=== PATIENT | male | born 1960 | race Caucasian/White ===

== ENCOUNTER 2018-07-29 05:55 | Inpatient (IN) ==
[2018-07-29] MEDS ORDERED: Ondansetron 4 MG/2 ML VIAL IVP ONE ×2 (06:09→14:46)
[2018-07-29] MEDS ORDERED: Isovue-370 500 ML INFUS..BTL IV ONE (06:09)
[2018-07-29] MEDS ORDERED: *HR* FentaNYL (PF) 100 MCG/2 ML VIAL IVP ONE (06:09)
[2018-07-29] MEDS ORDERED: 0.9 % Sodium Chloride 1,000 ML IVC ONE (06:09)
--- NOTE | 2018-07-29 06:23 | Emergency Department Note ---
Disposition Clinical Impression: Abdominal pain Disposition: Still a Patient Referrals: Gilson Man MD [Primary Care Provider] - Forms: ED Satisfaction Letter, Work/School Release General Adult HPI - General Chief complaint: ED Abdominal Pain Stated complaint: Abd pain Time Seen by Provider: 07/29/18 06:08 Source: EMS Limitations: no limitations Nursing Notes Reviewed: Yes Vital Signs Reviewed: Yes - History of Present Illness Pain Scale: 6 - Related Data Home Medications Medication Instructions Recorded Confirmed Motrin 12/16/17 Tylenol 12/16/17 Previous Rx's Medication Instructions Recorded Cyclobenzaprine [Flexeril] 10 mg PO HS #3 tablet 12/16/17 Diclofenac Potassium 50 mg PO TID PRN #20 tablet 12/16/17 predniSONE [PredniSONE] 20 mg PO BID #10 tablet 12/16/17 Allergies Allergy/AdvReac Type Severity Reaction Status Date / Time No Known Allergies Allergy Verified 12/16/17 14:08 Past Medical History - Past Medical History Medical history: Reports: other Psychiatric history: Reports: no psych history - Social History Smoking Status: Never smoker Smokeless Tobacco Status: No Alcohol use: Reports: none Drug use: Reports: none Physical Exam - General Limitations: no limitations General appearance: alert, in no apparent distress Course Vital Signs Temperature 100.1 F H 07/29/18 05:58 Pulse Rate 95 07/29/18 05:58 Respiratory Rate 20 07/29/18 05:58 Blood Pressure 140/84 07/29/18 05:58 O2 Sat by Pulse Oximetry 93 07/29/18 05:58 Temperature 100.1 F H 07/29/18 05:58 Pulse Rate 95 07/29/18 05:58 Respiratory Rate 20 07/29/18 05:58 Blood Pressure 140/84 07/29/18 05:58 O2 Sat by Pulse Oximetry 93 07/29/18 05:58 Oxygen Delivery Oxygen Delivery Room Air Attestation Statement - Attestation Attestation: This documentation is done with the assistance of Rebecca dictation. Despite efforts made to ensure accuracy, there may be inaccuracies in estimator project manager or spelling and typographical errors. I have personally performed a face to face evaluation on this patient. I have reviewed and agree with the care plan. History and Exam by me shows: Patient seen on arrival with EMS and Magui Kahn, patient denies having abdominal pain feels like he has been constipated with no urine output. He has been doing some exercises with his abdomen. He is not sure if that has a problem with this or not. Nonsurgical abdomen here. Were negative labs and imaging of his abdomen then reassess. He is in agreement with plan. We will sign this chart out to the day shift ER physician Dr. Masterson for further management disposition.
--- NOTE | 2018-07-29 06:24 | Emergency Department Note ---
Disposition Clinical Impression: Intra-abdominal abscess, Pelvic abscess in male, Diverticulitis UTI (urinary tract infection) Qualifiers: Urinary tract infection type: site unspecified Hematuria presence: with hematuria Qualified Code(s): N39.0 - Urinary tract infection, site not specified; R31.9 - Hematuria, unspecified Disposition: Admitted As Inpatient Condition: Fair Referrals: Gilson Man MD [Primary Care Provider] - Forms: ED Satisfaction Letter, Work/School Release Abdominal Pain HPI - General Chief Complaint: ED Abdominal Pain Stated Complaint: Abd pain Time Seen by Provider: 07/29/18 06:08 Source: patient, EMS Mode of arrival: EMS Limitations: no limitations Nursing Notes Reviewed: Yes Vital Signs Reviewed: Yes - History of Present Illness HPI Narrative: 57-year-old male presents from home by squad for evaluation of abdominal pain. He states that on Friday he was using an "AB roller" exercise device and had a sudden onset of severe abdominal pain. The pain was intermittent for about a day and has been constant since Friday night. He had a decreased appetite as well as anorexia. He also describes decreased urine output, but denies dysuria or hematuria. He denies chest pain, shortness of breath, nausea, vomiting, dizziness, vertigo or syncope. He has not taken anything for his symptoms. He states that his last bowel movement was on Friday before working out. He denies previous history of constipation and feels that he is not constipated, but rather has not eaten much over the past few days. Pt Subjective Complaint: abdominal pain Onset (ago): day(s) Consistency: constant, Worsening Location: periumbilical, suprapubic Pain Scale: 6 Quality: cramping, aching, fullness Radiation: other ("All over") Improves with: nothing Worsens with: nothing Context: other (Unknown) Associated symptoms: Reports: fever, chills, constipation, anorexia, other (Decreased urine output). Denies: nausea, vomiting, diarrhea, dysuria, hematemesis, hematochezia, melena, hematuria, syncope Treatments prior to arrival: none - Related Data Home Medications Medication Instructions Recorded Confirmed Gabapentin [Neurontin] 600 mg PO TID 07/29/18 07/29/18 Tramadol HCl [Ultram] 50 mg PO QID PRN 07/29/18 07/29/18 Allergies Allergy/AdvReac Type Severity Reaction Status Date / Time No Known Allergies Allergy Verified 12/16/17 14:08 All systems ED: reviewed and negative except as stated. Review of Systems: As Per HPI Constitutional: Reports: fever, chills. Denies: weakness, weight change, night sweats Eyes: Denies: eye pain, eye discharge, vision change ENT ED: Denies: ear pain, throat pain, congestion, dysphagia Cardiovascular: Denies: chest pain, palpitations, dyspnea on exertion, orthopnea, edema, syncope Respiratory: Denies: cough, dyspnea, wheezes Gastrointestinal: Reports: abdominal pain. Denies: nausea, vomiting, diarrhea, constipation Genitourinary: Denies: urgency, dysuria, frequency, hematuria, discharge, te sticular pain Musculoskeletal: Denies: back pain, neck pain Integumentary: Denies: rash Neurological: Denies: headache, weakness, vertigo Endocrine: Denies: fatigue Hematological/Lymphatic: Denies: easy bleeding, easy bruising, lymphadenopathy Abdominal Pain PMH - Past Medical History Medical history: Reports: other Male Surgical History: Reports: no surgical history Psychiatric history: Reports: no psych history - Social History Smoking status: Never smoker Alcohol use: Reports: none Drug use: Reports: none Physical Exam - General Limitations: no limitations General appearance: alert, in no apparent distress - Head Head exam: atraumatic, normocephalic, normal inspection - Eye Eye exam: Present: normal appearance. Absent: scleral icterus, conjunctival injection, periorbital swelling - ENT ENT exam: mucous membranes dry - Neck Neck exam: Present: normal inspection, full ROM, trachea midline. Absent: tenderness, meningismus - Chest Chest inspection: Present: normal inspection - Respiratory Respiratory exam: Present: normal lung sounds bilaterally. Absent: respiratory distress, wheezes, stridor, accessory muscle use, prolonged expiratory phase - Cardiovascular Cardiovascular exam: Present: regular rate, normal rhythm, normal heart sounds - Abdominal Exam Abdominal exam: Present: soft, tenderness, guarding, diminished bowel sounds. Absent: distention, rebound, rigidity, trauma, ascites, mass, pulsatile mass Abdominal tenderness: Present: RUQ, suprapubic, moderate - Extremities Exam Extremities exam: Present: normal inspection. Absent: pedal edema - Neurological Exam Neurological exam: Present: alert, oriented X3, CN II-XII intact, normal gait - Psychiatric Psychiatric exam: Present: normal affect, normal mood - Skin Skin exam: Present: warm, dry, intact, normal color Course Course Narrative: Patient to ED by squad for evaluation of abdominal pain. He is tender in the suprapubic area and right upper quadrant. He has guarding in the suprapubic area. He denies dysuria or hematuria but has had decreased urine output. No history of prostatitis, kidney stones or kidney infections. No groin pain or lesions. No new partners. Last bowel movement was Friday. However, he has had anorexia since Friday night. He has a low-grade fever and his oxygen saturation is a little low. He denies history of COPD, CHF, PE, asthma, recent respiratory infection, dyspnea, cough, hemoptysis, chest pain or feeling short of breath. His lung sounds are clear. Heart sounds are normal with no murmur. He has no peripheral edema. Sats are mildly improved when he is sitting semi- reclined. He describes the onset of pain while using a type of exercise equipment, however, I think this is actually unrelated as he is describing urinary symptoms, he is tender over the bladder and he has a fever. Bedside ultrasound scan of the bladder shows little to no urine. Labs, meds and CT ordered. Case was discussed with Dr. Bradley. He has had [id number] time with patient and agrees with the assessment and plan. Patient's labs show mild dehydration, leukocytosis with a prevalence of neutrophils. Chest x-ray shows right lower lobe atelectasis. No infiltrate per radiology. CT shows multiple intra-abdominal and intrapelvic abscesses, most likely from ruptured diverticuli. Surgery has been paged. - Consultations Consultation #1: Case discussed with Dr. Maharaj. He will admit the patient to his service. He requests Zosyn and Flagyl instead of Cipro and Flagyl. Blood cultures and abx ordered. Patient's vitals stable. Pain is improved. Time: 08:55 Vital Signs Temperature 100.1 F H 07/29/18 05:58 Pulse Rate 95 07/29/18 05:58 Respiratory Rate 20 07/29/18 05:58 Blood Pressure 140/84 07/29/18 05:58 O2 Sat by Pulse Oximetry 93 07/29/18 05:58 Temperature 100.1 F H 07/29/18 05:58 Pulse Rate 78 10/31/18 07:17 Respiratory Rate 16 07/29/18 07:17 Blood Pressure 106/71 07/29/18 07:17 O2 Sat by Pulse Oximetry 93 07/29/18 07:17 Oxygen Delivery Oxygen Delivery Room Air Abdominal Pain - Medical Records Medical records reviewed: Yes I reviewed the patient's medical records. - Lab Data Lab results reviewed: Yes I reviewed the patient's lab results. Lab results narrative: Laboratory Last Values WBC 15.3 K/mcL (4.3-11.1) H 07/29/18 06:05 RBC 4.91 M/mcL (4.19-5.50) 07/29/18 06:05 Hgb 14.9 g/dL (12.9-16.9) 07/29/18 06:05 Hct 42.9 % (37.5-50.1) 07/29/18 06:05 MCV 87.4 fL (83.0-100.0) 07/29/18 06:05 MCH 30.3 pg (28.0-33.3) 07/29/18 06:05 MCHC 34.7 g/dL (31.6-35.5) 07/29/18 06:05 RDW 12.2 % (11.5-14.5) 07/29/18 06:05 Plt Count 237 K/mcL (140-400) 07/29/18 06:05 MPV 9.6 fL (9.4-12.4) 07/29/18 06:05 Immature Gran % 1.2 % (0-4) 07/29/18 06:05 Seg Neutrophils % 83.5 % 07/29/18 06:05 Lymphocytes % 9.2 % 07/29/18 06:05 Monocytes % 5.3 % 07/29/18 06:05 Eosinophils % 0.5 % 07/29/18 06:05 Basophils % 0.3 % 07/29/18 06:05 Neutrophils # 12.8 K/mcL (1.6-8.9) H 07/29/18 06:05 Lymphocytes # 1.4 K/mcL (0.6-4.6) 07/29/18 06:05 Monocytes # 0.8 K/mcL (0.0-1.3) 07/29/18 06:05 Eosinophils # 0.1 K/mcL (0.0-0.6) 07/29/18 06:05 Basophils # 0.1 K/mcL (0.0-0.2) 07/29/18 06:05 PT 12.7 Seconds (9.4-12.1) H 07/29/18 06:05 INR 1.1 07/29/18 06:05 APTT 28.7 Seconds (26.0-36.0) 07/29/18 06:05 Sodium 130 mEq/L (136-145) L 07/29/18 06:05 Potassium 3.6 mEq/L (3.5-5.1) 07/29/18 06:05 Chloride 96 mEq/L (98-107) L 07/29/18 06:05 Carbon Dioxide 27 mEq/L (23-29) 07/29/18 06:05 BUN 17 mg/dL (6-20) 07/29/18 06:05 Creatinine 0.88 mg/dL (0.70-1.30) 07/29/18 06:05 Est GFR ( Amer) > 60 (> 60) 07/29/18 06:05 Est GFR (Non-Af Amer) > 60 (> 60) 07/29/18 06:05 BUN/Creatinine Ratio 19 (6-26) 07/29/18 06:05 Glucose 129 mg/dL (70-105) H 07/29/18 06:05 Calculated Osmolality 273 (280-300) L 07/29/18 06:05 Lactic Acid 0.5 mmol/L (0.5-2.2) 07/29/18 07:20 Calcium 9.0 mg/dL (8.6-10.3) 07/29/18 06:05 Total Bilirubin 1.4 mg/dL (0.3-1.0) H 07/29/18 06:05 Direct Bilirubin 0.5 mg/dL (0.0-0.2) H 07/29/18 06:05 Indirect Bilirubin 0.9 mg/dL (0.0-1.2) 07/29/18 06:05 AST 24 Units/L (13-39) 07/29/18 06:05 ALT 26 Units/L (7-52) 07/29/18 06:05 Alkaline Phosphatase 58 Units/L (34-104) 07/29/18 06:05 Serum Total Protein 6.9 g/dL (6.4-8.9) 07/29/18 06:05 Albumin 3.6 g/dL (3.5-5.7) 07/29/18 06:05 Globulin 3.3 g/dL (2.4-3.5) 07/29/18 06:05 Albumin/Globulin Ratio 1.1 (1.1-2.2) 07/29/18 06:05 Lipase 23 Units/L (11-82) 07/29/18 06:05 Urine Color Dark Yellow (Yellow) 07/29/18 07:15 Urine Clarity Cloudy (Clear) A 07/29/18 07:15 Urine pH 6.0 pH Units (5.0-8.0) 07/29/18 07:15 Ur Specific [place] 1.021 (1.010-1.025) 07/29/18 07:15 Urine Protein 100 mg/dL (Neg-Trace) H 07/29/18 07:15 Urine Glucose (UA) Normal mg/dL (Normal) 07/29/18 07:15 Urine Ketones Negative mg/dL (Negative) 07/29/18 07:15 Urine Blood Large (Negative) H 07/29/18 07:15 Urine Nitrite Negative (Negative) 07/29/18 07:15 Urine Bilirubin Small (Negative) H 07/29/18 07:15 Urine Urobilinogen 4.0 mg/dL (Normal) H 07/29/18 07:15 Ur Leukocyte Esterase Small (Negative) H 07/29/18 07:15 Urine Microscopic RBC 50-100 per hpf (0-3) H 07/29/18 07:15 Urine Microscopic WBC 5-15 per hpf (0-3) H 07/29/18 07:15 Ur Squamous Epith Cells Few per lpf (None-Few) 07/29/18 07:15 Urine Bacteria Moderate per hpf (None-Few) H 07/29/18 07:15 Hyaline Casts None Seen per lpf (None-Few) 07/29/18 07:15 Ur Culture Indicated? YES (NO) A 07/29/18 07:15 Result diagrams: 07/29/18 06:05 07/29/18 06:05 Lab Results 07/29/18 07/29/18 07/29/18 Range/Units 06:05 06:05 06:05 WBC 15.3 H (4.3-11.1) K/mcL RBC 4.91 (4.19-5.50) M/mcL Hgb 14.9 (12.9-16.9) g/dL Hct 42.9 (37.5-50.1) % MCV 87.4 (83.0-100.0) fL MCH 30.3 (28.0-33.3) pg MCHC 34.7 (31.6-35.5) g/dL RDW 12.2 (11.5-14.5) % Plt Count 237 (140-400) K/mcL MPV 9.6 (9.4-12.4) fL Immature Gran % 1.2 (0-4) % Seg Neutrophils % 83.5 % Lymphocytes % 9.2 % Monocytes % 5.3 % Eosinophils % 0.5 % Basophils % 0.3 % Neutrophils # 12.8 H (1.6-8.9) K/mcL Lymphocytes # 1.4 (0.6-4.6) K/mcL Monocytes # 0.8 (0.0-1.3) K/mcL Eosinophils # 0.1 (0.0-0.6) K/mcL Basophils # 0.1 (0.0-0.2) K/mcL PT 12.7 H (9.4-12.1) Seconds INR 1.1 APTT 28.7 (26.0-36.0) Seconds Sodium 130 L (136-145) mEq/L Potassium 3.6 (3.5-5.1) mEq/L Chloride 96 L (98-107) mEq/L Carbon Dioxide 27 (23-29) mEq/L BUN 17 (6-20) mg/dL Creatinine 0.88 (0.70-1.30) mg/dL Est GFR ( Amer) > 60 (> 60) Est GFR (Non-Af Amer) > 60 (> 60) BUN/Creatinine Ratio 19 (6-26) Glucose 129 H (70-105) mg/dL Calculated Osmolality 273 L (280-300) Calcium 9.0 (8.6-10.3) mg/dL Total Bilirubin 1.4 H (0.3-1.0) mg/dL Direct Bilirubin 0.5 H (0.0-0.2) mg/dL Indirect Bilirubin 0.9 (0.0-1.2) mg/dL AST 24 (13-39) Units/L ALT 26 (7-52) Units/L Alkaline Phosphatase 58 (34-104) Units/L Serum Total Protein 6.9 (6.4-8.9) g/dL Albumin 3.6 (3.5-5.7) g/dL Globulin 3.3 (2.4-3.5) g/dL Albumin/Globulin Ratio 1.1 (1.1-2.2) Lipase 23 (11-82) Units/L Urine Color (Yellow) Urine Clarity (Clear) Urine pH (5.0-8.0) pH Units Ur Specific [place] (1.010-1.025) Urine Protein (Neg-Trace) mg/dL Urine Glucose (UA) (Normal) mg/dL Urine Ketones (Negative) mg/dL Urine Blood (Negative) Urine Nitrite (Negative) Urine Bilirubin (Negative) Urine Urobilinogen (Normal) mg/dL Ur Leukocyte Esterase (Negative) 07/29/18 Range/Units 07:15 WBC (4.3-11.1) K/mcL RBC (4.19-5.50) M/mcL Hgb (12.9-16.9) g/dL Hct (37.5-50.1) % MCV (83.0-100.0) fL MCH (28.0-33.3) pg MCHC (31.6-35.5) g/dL RDW (11.5-14.5) % Plt Count (140-400) K/mcL MPV (9.4-12.4) fL Immature Gran % (0-4) % Seg Neutrophils % % Lymphocytes % % Monocytes % % Eosinophils % % Basophils % % Neutrophils # (1.6-8.9) K/mcL Lymphocytes # (0.6-4.6) K/mcL Monocytes # (0.0-1.3) K/mcL Eosinophils # (0.0-0.6) K/mcL Basophils # (0.0-0.2) K/mcL PT (9.4-12.1) Seconds INR APTT (26.0-36.0) Seconds Sodium (136-145) mEq/L Potassium (3.5-5.1) mEq/L Chloride (98-107) mEq/L Carbon Dioxide (23-29) mEq/L BUN (6-20) mg/dL Creatinine (0.70-1.30) mg/dL Est GFR ( Amer) (> 60) Est GFR (Non-Af Amer) (> 60) BUN/Creatinine Ratio (6-26) Glucose (70-105) mg/dL Calculated Osmolality (280-300) Calcium (8.6-10.3) mg/dL Total Bilirubin (0.3-1.0) mg/dL Direct Bilirubin (0.0-0.2) mg/dL Indirect Bilirubin (0.0-1.2) mg/dL AST (13-39) Units/L ALT (7-52) Units/L Alkaline Phosphatase (34-104) Units/L Serum Total Protein (6.4-8.9) g/dL Albumin (3.5-5.7) g/dL Globulin (2.4-3.5) g/dL Albumin/Globulin Ratio (1.1-2.2) Lipase (11-82) Units/L Urine Color Dark Yellow (Yellow) Urine Clarity Cloudy A (Clear) Urine pH 6.0 (5.0-8.0) pH Units Ur Specific [place] 1.021 (1.010-1.025) Urine Protein 100 H (Neg-Trace) mg/dL Urine Glucose (UA) Normal (Normal) mg/dL Urine Ketones Negative (Negative) mg/dL Urine Blood Large H (Negative) Urine Nitrite Negative (Negative) Urine Bilirubin Small H (Negative) Urine Urobilinogen 4.0 H (Normal) mg/dL Ur Leukocyte Esterase Small H (Negative) - Radiology Data Radiology results reviewed: Yes I reviewed the patient's radiology results. Abdomen/Pelvis CT 07/29/18 06:09 IMPRESSION: 1. Multiple intra-abdominal and pelvic abscesses with the largest centered in the deep pelvis measuring 5.9 x 4.3 cm. There are also few punctate foci of extraluminal gas. I suspect these most likely are secondary to diverticulitis and ruptured diverticula. D/ / Luis Manuel Franklin MD / Luis Manuel Franklin MD Interpreting Provider: Luis Manuel Franklin MD Chest X-Ray 07/29/18 08:06 IMPRESSION: Minimal atelectasis right lower lobe. No evident pneumonia or heart failure. D/ / Ash Mukherjee MD / Ash Mukherjee MD Interpreting Provider: Ash Mukherjee MD
[2018-07-29 06:37] LABS: Basophils # 0.1 K/mcL (0.0-0.2); Basophils % 0.3 %; Eosinophils # 0.1 K/mcL (0.0-0.6); Eosinophils % 0.5 %; Hematocrit 42.9 % (37.5-50.1); Hemoglobin 14.9 g/dL (12.9-16.9); Immature Granulocytes % 1.2 % (0-4); Lymphocytes # 1.4 K/mcL (0.6-4.6); Lymphocytes % 9.2 %; Mean Corpuscular HGB Conc 34.7 g/dL (31.6-35.5); Mean Corpuscular Hemoglobin 30.3 pg (28.0-33.3); Mean Corpuscular Volume 87.4 fL (83.0-100.0); Mean Platelet Volume 9.6 fL (9.4-12.4); Monocytes # 0.8 K/mcL (0.0-1.3); Monocytes % 5.3 %; Neutrophils # 12.8 K/mcL (1.6-8.9); Platelet Count 237 K/mcL (140-400); Red Blood Count 4.91 M/mcL (4.19-5.50); Red Cell Distribution Width 12.2 % (11.5-14.5); Segmented Neutrophils % 83.5 %
[2018-07-29 06:43] LABS: Alanine Aminotransferase 26 Units/L (7-52); Albumin 3.6 g/dL (3.5-5.7); Albumin/Globulin Ratio 1.1 (1.1-2.2); Alkaline Phosphatase 58 Units/L (34-104); Aspartate Amino Transferase 24 Units/L (13-39); BUN/Creatinine Ratio 19 (6-26); Bilirubin,Direct 0.5 mg/dL (0.0-0.2); Bilirubin,Indirect 0.9 mg/dL (0.0-1.2); Bilirubin,Total 1.4 mg/dL (0.3-1.0); Blood Urea Nitrogen 17 mg/dL (6-20); Carbon Dioxide 27 mEq/L (23-29); Chloride 96 mEq/L (98-107); Globulin 3.3 g/dL (2.4-3.5); Glucose 129 mg/dL (70-105); Lipase 23 Units/L (11-82); Osmolality,Calculated 273 (280-300); Potassium 3.6 mEq/L (3.5-5.1); Sodium 130 mEq/L (136-145); Total Protein 6.9 g/dL (6.4-8.9); eGFR For Non-African Americans > 60 (> 60)
[2018-07-29 06:46] LABS: INR 1.1; Prothrombin Time 12.7 Seconds (9.4-12.1)
[2018-07-29 06:49] LABS: Activated Partial Thrombo Time 28.7 Seconds (26.0-36.0)
[2018-07-29 07:23] LABS: Bilirubin,Urine Small (Negative); Blood,Urine Large (Negative); Clarity,Urine Cloudy (Clear); Color,Urine Dark Yellow (Yellow); Glucose,Urine (UA) Normal (Normal); Ketones,Urine Negative (Negative); Leukocyte Esterase,Urine Small (Negative); Nitrite,Urine Negative (Negative); Protein,Urine 100 mg/dL (Neg-Trace); Specific Gravity,Urine 1.021 (1.010-1.025)
[2018-07-29 07:25] LABS: Hyaline Casts,Urine None Seen per lpf (None-Few)
[2018-07-29 07:50] LABS: Squamous Epithelial Cell,Urine Few per lpf (None-Few)
[2018-07-29 07:51] LABS: RBC,Urine 50-100 per hpf (0-3)
[2018-07-29 07:52] LABS: Bacteria,Urine Moderate per hpf (None-Few)
[2018-07-29] MEDS ORDERED: Ketorolac 15 MG/ML VIAL IVP ONE (08:21)
[2018-07-29] MEDS ORDERED: Hyoscyamine 0.5 MG/ML MLS IVP ONE (08:21)
[2018-07-29] MEDS ORDERED: MetroNIDAZOLE 500 MG/100 ML 500 MG/100 ML BAG IVPB ONE (08:52)
[2018-07-29] MEDS ORDERED: Piperacillin/Tazobactam 3.375 GM in 0.9 % Sodium Chloride Mini Bag 100 ML IVPB ONE (08:59)
[2018-07-29] MEDS ORDERED: *HR* Propofol 200 MG/20 ML VIAL IVP ONE (12:53)
[2018-07-29] MEDS ORDERED: *HR* FentaNYL (PF) 100 MCG/2 ML VIAL ONE ×2 (12:53→16:38)
[2018-07-29] MEDS ORDERED: Ondansetron 4 MG/2 ML VIAL ONE (12:54)
[2018-07-29] MEDS ORDERED: Lidocaine -MPF 2% 2 ML VIAL ONE ×2 (12:54→14:08)
[2018-07-29] MEDS ORDERED: Dexamethasone 4 MG/ML VIAL ONE (12:54)
[2018-07-29] MEDS ORDERED: *HR* Rocuronium Bromide 50 MG/5 ML VIAL ONE ×2 (12:54→15:25)
--- NOTE | 2018-07-29 13:03 | Anesthesia Evaluation PreOp ---
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 (left sided radiculopathy (numbness only)) Other Medical History: Denies Any Significant HX Anesthesia History: No Prior Anesthetic Complications Alcohol Use: none Drug use: none Medications and Allergies Gabapentin [Neurontin] 600 mg PO TID 07/29/18 [History] Tramadol HCl [Ultram] 50 mg PO QID PRN 07/29/18 [History] Allergy/AdvReac Type Severity Reaction Status Date / Time No Known Allergies Allergy Verified 12/16/17 14:08 - Meds/Allergy Pre-op Review Medications Reviewed: Yes Allergies Reviewed: Yes Beta Blockers on Current Med List: No Anesthesia Results - Labs 07/29/18 06:05 07/29/18 06:05 Anesthesia Exam Last Vital Signs Temp 98.1 F 07/29/18 10:17 Pulse 67 07/29/18 10:17 Resp 18 07/29/18 09:09 BP 89/59 07/29/18 10:17 Pulse Ox 95 07/29/18 10:17 Weight: 83 kg NPO (# of Hours): > 8 hrs - HEENT Pupil (Motor): Pupils equal, EOMI Mallampati: III Teeth: Normal Oral Opening: Greater than 3 - [employer] ENTRY CLERK LOC: Oriented - Cardiac Rhythm: Regular Murmur: None - Pulmonary Breath Sounds: bilateral Clear Respiratory Effort: Symmetrical Anesthesia Assess/Plan ASA Score: 3 Modified [place] Scale for Level of Consciousness: Cooperative, oriented, and tranquil Anesthetic Plan: General Monitoring Plan: Standard Monitors, A-Line, CVC (+/-) Recovery Plan: PACU (or ICU if needed)
--- NOTE | 2018-07-29 13:42 | General Surg History&Physical ---
Date of Encounter: 07/29/18 Time of Encounter: 12:55 History of Present Illness Chief complaint: Perforated viscus with acute peritonitis HPI: Mr. Ho is a 57 year old male referred to surgical services after presenting to the emergency department with approximately a 5 day history of Progressive abdominal pain. Patient denies nausea or vomiting but has been anorexic and has noticed decreased urine output. The patient has steadily progressed is currently characterized as severe. Patient denies any nutritional intake since Friday (4 days ago). White count is notably elevated at 15.3 with 12.8 neutrophils. Hemoglobin 14.9, hematocrit 42.9, platelet count 237,000. Electrolytes notable for a sodium of 1:30, chloride 96. BUN was normal at 17, creatinine was normal at 0.88. Total bilirubin 1.4, the remainder of the LFTs were normal. Urinalysis was abnormal showing cloudy urine with pH of 1.0-1; protein 100, urobilinogen 4.0, 50-100 RBCs per high-powered field 5-15 white cells per high-powered field. CT abdomen/pelvis demonstrated: By Beseler atelectasis, contracted gallbladder without obvious stones, calcified splenic granulomas, mild-appearing liver pancreas and adrenal glands. Scattered diverticulosis is noted with a gas fluid collection in the deep central pelvis measuring 5.9 x 4.3 cm located between the bladder and the rectosigmoid. There also appears to be an abscess in the upper abdomen with suggestion of jejunal involvement versus perforation. I personally reviewed the CT with [facility]. Past medical history: Is unremarkable except for chronic back pain Allergies: No known drug allergies Medications: Patient indicates he takes tramadol and gabapentin The medical records also indicate previous treatment with cyclobenzaprine diclofenac and prednisone (November/2017) Social history: The patient is , lives at home with his . He admits to smoking up to 2 packs daily for 20 or 25 years but quit smoking approximately 20 years ago. He does admit to an occasional alcoholic beverage. He denies any illicit drug use physical examination: Age-appropriate male resting comfortably in his hospital bed. He is 1.7 m tall, 2.81 kg; BMI 28.6 The patient is afebrile at 98.1; pulse is 67-74, respirations 18, blood pressure ranges 100/68-117/82. SPO2 on room air 95% Skin: Warm, no obvious jaundice Cardiac: Regular rate, no appreciable murmurs Lungs: Clear to auscultation with minimal abdominal pain on deep inspiration Abdomen: Soft, with tenderness most prominent in the retropubic area. Few bowel sounds. No obvious masses or hepatosplenomegaly detected. The patient does demonstrate rebound when the abdominal wall is released following palpation. Extremities: No obvious clubbing, cyanosis, or edema. Impression: 57-year-old male referred to surgical services after presenting to the emergency department with a five-day history of progressive abdominal pain. Clinical examination demonstrates diffuse abdominal pain consistent with peritonitis. CT abdomen/pelvis demonstrates multiple intra-abdominal and pelvic abscesses with the largest centered in the deep pelvis consistent with acute sigmoid diverticulitis with perforation. Another abscess was appears to be secondary is in the upper abdomen with inflamed adjacent jejunum. There is concern of polyp central perforation of this segment of small bowel. I have discussed continued patient care with the ED personnel. The patient will be admitted to inpatient status, NPO, IV antibiotics (Zosyn and metronidazole) and pain medications administered. I have examined the patient and discussed the clinical and radiologic findings. I have recommended an exploratory celiotomy with possible small bowel resection versus a Kassidy procedure (sigmoid colectomy with end colostomy). Whatever inflammation is encountered in the peritoneum will be irrigated and debrided as appropriate. Alternatives to surgery include continued IV fluids, antibiotics and pain control with the potential for worsening pain and developing sepsis. The risks of surgery include hemorrhage, infection, injury to adjacent structures, pneumonia, respiratory failure, and cardiac risks such as dysrhythmia and [place].. I have discussed this with the patient in detail. He has agreed to proceed with exploratory celiotomy. This will be completed DARY. Margarita gical consent has been obtained. Past Med Surg Social Fam HX - Past Medical History Medical history: other Additional medical history: pinched sciatic nerve Psychiatric history: no psych history - Past Surgical History Surgical History: no surgical history - Social History Smoking Status: Never smoker Smokeless Tobacco Status: No Alcohol use: none Drug use: none - Family History Father Living Status: Hx Family Cancer: Yes Mother Living Status: Still Living Hx Family Cardiac Disorders: Yes Hx Family Endocrine Disorder: Yes Medications and Allergies Gabapentin [Neurontin] 600 mg PO TID 07/29/18 [History] Tramadol HCl [Ultram] 50 mg PO QID PRN 10/31/18 [History] Allergy/AdvReac Type Severity Reaction Status Date / Time No Known Allergies Allergy Verified 12/16/17 14:08 Review of Systems All systems PM: The remainder of the systems were reviewed and are negative General Surgery Exam Initial Vital Signs Temp Pulse Resp BP Pulse Ox 100.1 F H 95 20 140/84 93 07/29/18 05:58 07/29/18 05:58 07/29/18 05:58 07/29/18 05:58 07/29/18 05:58 Results - Labs 07/29/18 06:05 07/29/18 06:05 Abnormal lab results WBC 15.3 K/mcL (4.3-11.1) H 07/29/18 06:05 Neutrophils # 12.8 K/mcL (1.6-8.9) H 07/29/18 06:05 PT 12.7 Seconds (9.4-12.1) H 07/29/18 06:05 Sodium 130 mEq/L (136-145) L 07/29/18 06:05 Chloride 96 mEq/L (98-107) L 07/29/18 06:05 Glucose 129 mg/dL (70-105) H 07/29/18 06:05 Calculated Osmolality 273 (280-300) L 07/29/18 06:05 Total Bilirubin 1.4 mg/dL (0.3-1.0) H 07/29/18 06:05 Direct Bilirubin 0.5 mg/dL (0.0-0.2) H 07/29/18 06:05 Urine Clarity Cloudy (Clear) A 07/29/18 07:15 Urine Protein 100 mg/dL (Neg-Trace) H 07/29/18 07:15 Urine Blood Large (Negative) H 07/29/18 07:15 Urine Bilirubin Small (Negative) H 07/29/18 07:15 Urine Urobilinogen 4.0 mg/dL (Normal) H 07/29/18 07:15 Ur Leukocyte Esterase Small (Negative) H 07/29/18 07:15 Urine Microscopic RBC 50-100 per hpf (0-3) H 07/29/18 07:15 Urine Microscopic WBC 5-15 per hpf (0-3) H 07/29/18 07:15 Urine Bacteria Moderate per hpf (None-Few) H 07/29/18 07:15 Ur Culture Indicated? YES (NO) A 07/29/18 07:15 Diabetes panel 07/29/18 Range/Units 06:05 Sodium 130 L (136-145) mEq/L Potassium 3.6 (3.5-5.1) mEq/L Chloride 96 L (98-107) mEq/L Carbon Dioxide 27 (23-29) mEq/L BUN 17 (6-20) mg/dL Creatinine 0.88 (0.70-1.30) mg/dL Glucose 129 H (70-105) mg/dL Calcium 9.0 (8.6-10.3) mg/dL AST 24 (13-39) Units/L ALT 26 (7-52) Units/L Alkaline Phosphatase 58 (34-104) Units/L Albumin 3.6 (3.5-5.7) g/dL Calcium panel 07/29/18 Range/Units 06:05 Calcium 9.0 (8.6-10.3) mg/dL Albumin 3.6 (3.5-5.7) g/dL Pituitary panel 07/29/18 Range/Units 06:05 Sodium 130 L (136-145) mEq/L Potassium 3.6 (3.5-5.1) mEq/L Chloride 96 L (98-107) mEq/L Carbon Dioxide 27 (23-29) mEq/L BUN 17 (6-20) mg/dL Creatinine 0.88 (0.70-1.30) mg/dL Glucose 129 H (70-105) mg/dL Calcium 9.0 (8.6-10.3) mg/dL Adrenal panel 07/29/18 Range/Units 06:05 Sodium 130 L (136-145) mEq/L Potassium 3.6 (3.5-5.1) mEq/L Chloride 96 L (98-107) mEq/L Carbon Dioxide 27 (23-29) mEq/L BUN 17 (6-20) mg/dL Creatinine 0.88 (0.70-1.30) mg/dL Glucose 129 H (70-105) mg/dL Calcium 9.0 (8.6-10.3) mg/dL Total Bilirubin 1.4 H (0.3-1.0) mg/dL AST 24 (13-39) Units/L ALT 26 (7-52) Units/L Alkaline Phosphatase 58 (34-104) Units/L Albumin 3.6 (3.5-5.7) g/dL All other labs normal.
[2018-07-29] MEDS ORDERED: *HR* Midazolam HCl 2 MG/2 ML VIAL ONE (13:43)
[2018-07-29] MEDS ORDERED: *HR* Etomidate 40 MG/20 ML VIAL IVP ONE (14:08)
[2018-07-29] MEDS ORDERED: Lidocaine -MPF 4% 5 ML AMPUL ONE (14:11)
[2018-07-29] MEDS ORDERED: EPHEDrine 50 MG/ML VIAL ONE (14:11)
[2018-07-29] MEDS ORDERED: *HR* PHENYLEPHRINE 1,000 MCG/10 ML SYRINGE IVP ONE (14:17)
[2018-07-29] MEDS ORDERED: *HR* Morphine 10 MG/ML VIAL ONE (14:40)
[2018-07-29] MEDS ORDERED: Dexamethasone 4 MG/ML VIAL IVP ONE (14:46)
[2018-07-29] MEDS ORDERED: *HR* Promethazine 25 MG/ML VIAL IVP PRN (14:46)
[2018-07-29] MEDS ORDERED: Acetaminophen IV 1,000 MG/100 ML INFUS..BTL ONE (15:00)
[2018-07-29] MEDS ORDERED: Neostigmine Methylsulfate 3 MG/3 ML SYRINGE ONE (16:35)
--- NOTE | 2018-07-29 17:15 | Operative Note ---
Date of procedure: 07/29/18 Pre-op diagnosis: perforated viscus with acute peritonitis Post-op diagnosis: other (acute perforated sigmoid diverticulitis with intra- abdominal and pelvis abscesses; peritonitis; Meckel's diverticulum) Procedure: Placement of central venous line via left subclavian vein; exploratory celiotomy, evacuation of intra-abdominal and pelvic abscess with aerobic and anaerobic cultures of the pelvic abscess; Laboy procedure (sigmoid colectomy with end descending colostomy and Kassidy pouch) Complications: None apparent Anesthesia: GETA Surgeon: Kurt Maharaj Was there an assistant softball coach present: No Estimated blood loss (cc): 100 IV fluids (cc): 2,000 Specimen: sigmoid colon, meckel's diverticulum, aerobic and anaerobic cultures Condition: stable Disposition: PACU Procedure in Detail: The patient was brought to the operating room where he was placed supine on the procedure table. The patient was appropriately identified for person and procedure. The accuracy of this information was confirmed by the patient and procedure team. Patient was then intubated and anesthetized under the supervision of Dr. Sarah Garcia. A Calzada catheter was inserted, an OG tube was placed. Venous access was discussed with the anesthesia team. Vascular access for the surgery and planned TPN postop led to the consensus that a central line would be placed. The surgeon was gowned, gloved, masked, and capped appropriate handwashing. The left upper chest and infraclavicular space was prepped with chlorhexidine. A whole body drape was applied. As the patient was already anesthetized, no lidocaine was administered. Using an 18-gauge needle, the left subclavian vein was located. In the technique described by Sudha guidewire was inserted. Needle was extracted. At no time was air aspirated. The skin tract was incised and dilated. A 16 cm, 7 Fr, 3 Lumen catheter was passed over the guidewire. Catheter was advanced to 15 cm and secured to the infraclavicular skin with 3-0 silk. 3 ports aspirated easily for blood and were flushed with saline. A Biopatch followed by a dry sterile dressing was applied. The abdomen was prepped and draped in the usual sterile fashion. A midline incision was made from the pubis to just above the umbilicus with a #10 scalpel. The incision was extended through the subcutaneous tissue to the fascia. Bleeding points were controlled electrocautery. The fascia was incised, the peritoneal cavity entered atraumatically. Exposure was facilitated by a self- retaining Omni tract retractor. Preoperative CT demonstrated a mid abdominal abscess in the vicinity of the jejunum as well as a large complex pelvic abscess. When the pelvis was examined, a large abscess containing pus was encountered. Aerobic and anaerobic cultures were obtained. The pus was evacuated. A lap sponge was placed into the abscess. The small bowel was then examined from cecum to ligament of Treitz. A subcentimeter Meckel's diverticulum was encountered, demonstrating no inflammation. An abscess in the mid abdomen was encountered with the pus evacuated. Multiple loops of adjacent small bowel demonstrated inflammation and fibrinous exudate. No perforation was identified and it appeared that this abscess was truly secondary to the pelvic process. The sigmoid colon was mobilized by incising the lateral peritoneal reflection. Dissection proceeded into the pelvis. The distal sigmoid and rectosigmoid demonstrated acute inflammatory changes and at the rectosigmoid a donnell perforation of the bowel was identified. Dissection extended into the pelvis until a Ethicon Contour 40 mm stapler could be placed. The bowel was transected proximal to the staple line and mobilized proximally. The mesentery was dissected with the aid of an Ethicon Enseal dissector. A segment of the distal descending colon was selected and divided with an Ethicon 75 mm linear cutter. The bowel was removed from the field. The distal descending colon was mobilized by further dissecting along the lateral peritoneal reflection until a sufficient length of bowel could pass through the anterior abdominal wall to create an end colostomy. A circular incision was placed in the left upper anterior abdominal wall. The dissection extended through the subcutaneous fat. Bleeding points were controlled with electrocautery. The anterior rectus sheath was incised transversely. The rectus abdominis muscle was divided in the direction of their fibers. The posterior rectus sheath was incised transversely. Distal descending colon was exteriorized through this ostomy. Noncrushing bowel clamp was placed on the bowel to maintain its position. The abdomen and peritoneum were irrigated with warm sterile saline. The small bowel was again examined from ligament of Treitz to the ileocecal valve. The small Meckel's diverticulum was transected with the aid of a Ethicon TX 30 mm stapler transverse to the long axis of the bowel. The Meckel's diverticulum was removed and sent to pathology as a separate specimen. The staple line was reinforced with interrupted [id number] 3-0 silk. The bowel lumen was not compromised by this resection. The colon was examined. The cecum and ascending and transverse colon appeared grossly normal as did the descending colon. It was considerable inflammation in the pelvis but hemostasis was deemed adequate. The Kassidy pouch appeared intact as well. Closure was then initiated. The peritoneum was approximated with running 0 Vicryl. The midline fascia was approximated with interrupted [id number] 0 Vicryl. The subcutaneous tissue was approximated with running 3-0 Vicryl. The skin edges approximated with martin. Dry sterile dressings applied. The colostomy was then matured by excising the staple line and approximating the colon mucosa to the skin edges with 4 quadrant interrupted vertical mattress 3-0 chromic followed by interrupted 3-0 chromic to complete the approximation. A 2-1/4 inch ostomy appliance was placed. The OG tube was removed, the Calzada catheter maintained. The patient was taken to recovery in stable condition. Needle, sponge, and instrument counts were correct at the close of the case.
[2018-07-29] MEDS: *HR* HYDROmorphone (PF) 1 MG/ML SYRINGE IVP PRN ×6 (17:26→18:02)
[2018-07-29] MEDS ORDERED: Ringers Solution, Lactated 1,000 ML ONE (17:27)
[2018-07-29] MEDS: Piperacillin/Tazobactam 3.375 GM in 0.9 % Sodium Chloride Mini Bag 100 ML IVPB SCH (17:40)
[2018-07-29] MEDS ORDERED: Ketorolac 30 MG/ML VIAL IVP ONE (17:40)
--- NOTE | 2018-07-29 18:20 | Anesthesia Evaluation Post Op ---
Date of Encounter: 07/29/18 Time of Encounter: 18:20 - Vital Signs Vital Signs: Vital Signs/O2 Sat, Most Current Temp Pulse Resp BP Pulse Ox 99 F 71 16 129/79 93 07/29/18 18:14 07/29/18 18:14 07/29/18 18:14 07/29/18 18:14 07/29/18 18:14 - Lungs Lungs: Clear Ascult./Percussion - Airway Airway: Non-obstructed - Cardiovascular Regular Rate - Mental Status Mental Status: Alert & Oriented, Answers Appropriately - Pain Pain Scale: 6 Pain Scale used: Numeric (1 - 10) - Nausea Vomiting Nausea Vomiting: Not Present - Hydration Hydration: NPO, Calzada catheter - Discharge PostOp Status: Transfer Patient to floor
[2018-07-29] MEDS: *HR* HYDROmorphone 20 MG/20 ML PCA IVC PRN (20:03)
[2018-07-29] MEDS: Ringers Solution, Lactated 1,000 ML IVC SCH (20:21)
[2018-07-29] MEDS: MetroNIDAZOLE 500 MG/100 ML 500 MG/100 ML BAG IVPB SCH (21:59)
[2018-07-30] MEDS: Piperacillin/Tazobactam 3.375 GM in 0.9 % Sodium Chloride Mini Bag 100 ML IVPB SCH ×3 (02:02→17:32)
[2018-07-30] MEDS: MetroNIDAZOLE 500 MG/100 ML 500 MG/100 ML BAG IVPB SCH ×4 (02:50→21:06)
[2018-07-30 04:40] LABS: Basophils % 0.3 %; Hematocrit 40.4 % (37.5-50.1); Hemoglobin 13.6 g/dL (12.9-16.9); Lymphocytes # 0.7 K/mcL (0.6-4.6); Lymphocytes % 5.9 %; Mean Corpuscular HGB Conc 33.7 g/dL (31.6-35.5); Mean Corpuscular Hemoglobin 30.1 pg (28.0-33.3); Mean Corpuscular Volume 89.4 fL (83.0-100.0); Mean Platelet Volume 9.7 fL (9.4-12.4); Monocytes # 0.4 K/mcL (0.0-1.3); Monocytes % 3.5 %; Neutrophils # 9.8 K/mcL (1.6-8.9); Platelet Count 211 K/mcL (140-400); Red Blood Count 4.52 M/mcL (4.19-5.50); Red Cell Distribution Width 12.5 % (11.5-14.5); Segmented Neutrophils % 87.3 %
[2018-07-30 05:01] LABS: Alanine Aminotransferase 18 Units/L (7-52); Albumin/Globulin Ratio 1.1 (1.1-2.2); Alkaline Phosphatase 50 Units/L (34-104); Aspartate Amino Transferase 15 Units/L (13-39); BUN/Creatinine Ratio 22 (6-26); Blood Urea Nitrogen 17 mg/dL (6-20); Calcium 8.3 mg/dL (8.6-10.3); Carbon Dioxide 25 mEq/L (23-29); Chloride 103 mEq/L (98-107); Globulin 2.7 g/dL (2.4-3.5); Glucose 136 mg/dL (70-105); Osmolality,Calculated 288 (280-300); Sodium 137 mEq/L (136-145); Total Protein 5.7 g/dL (6.4-8.9); eGFR For Non-African Americans > 60 (> 60)
[2018-07-30] MEDS: Ringers Solution, Lactated 1,000 ML IVC SCH ×3 (05:54→19:32)
[2018-07-30] MEDS: Pantoprazole 40 MG VIAL IVP SCH (08:34)
[2018-07-30 09:56] LABS: Magnesium 2.1 mg/dL (1.6-2.6); Triglycerides 110 mg/dL (< 150)
[2018-07-30] MEDS: *HR* HYDROmorphone 20 MG/20 ML PCA IVC PRN (11:47)
[2018-07-30] MEDS ORDERED: D10% in Water 500 ML IVC PRN (11:48)
[2018-07-30] MEDS ORDERED: Clinimix E 5%-15% SOLUTION 2,000 ML with MVI, adult with vitamin K 10 ML IVC SCH (17:00)
--- NOTE | 2018-07-30 20:59 | General Surgery Progress Note ---
Date of Encounter: 07/30/18 Time of Encounter: 19:10 Subjective Patient reports: feels better, still having pain, pain is less Narrative: General Surgery - POD #1 Patient awake and alert, complaining of thirst, feeling much improved from his preoperative state. The patient is afebrile, 98.4, pulse 74, respirations 16, blood pressure 119/71. Lungs are clear bilaterally; no obvious abdominal pain and deep inspiration Cardiac: Regular rate, no appreciable murmurs Abdomen soft with active bowel sounds. Healthy appearing stoma left mid to upper anterior abdominal wall. No obvious flatus or stool. Midline incision is intact; skin edges well approximated. Dressing removed Tenderness as expected at the incision. No obvious peritoneal signs. Urine output 1475 mL so far today. Labs: White count 11.2, hemoglobin 13.6, hematocrit 40.4, neutrophils have imp roved from 12.8-9.8. Electrolytes, BUN, creatinine within normal limits. Total serum protein 5.7, albumin 3.0 Impression: 57-year-old male, postoperative day #1 Kassidy procedure for acute perforated sigmoid diverticulitis with mid abdominal and pelvic abscesses Acceptable postoperative status TPN initiated. Accu-Cheks ranging 125-136. Objective Vital Signs - Last 8 Hours Temp Pulse Resp BP Pulse Ox 07/30/18 19:12 98.4 F 74 15 119/71 92 07/30/18 14:10 97.8 F 72 15 117/65 92 Intake and Output 07/30/18 07/30/18 07/30/18 07:59 15:59 23:59 Intake Total 1100 / 1100 1100 / 1100 1200 / 1200 Output Total 925 / 925 400 / 400 150 / 150 Balance 175 / 175 700 / 700 1050 / 1050 Intake: IV Fluids 1100 / 1100 1100 / 1100 1200 / 1200 Lactated Ringers 1,000 ML @ 125 1000 / 1000 900 / 900 1000 / 1000 mls/hr IVC .Q8H [facility] Rx#: [id number] Flagyl Premix 500 MG/100 ML 500 100 / 100 100 / 100 100 / 100 mg In 100 ml @ 100 mls/hr IVPB Q6H [facility] Rx#:[id number] Zosyn 3.375 GM In 0.9 % Sodium 100 / 100 100 / 100 Chloride (Mini-Bag +) 100 ML @ 25 mls/hr IVPB Q8H [facility] Rx#: [id number] Oral 0 / 0 0 / 0 Output: Stool 0 / 0 Catheter 925 / 925 400 / 400 150 / 150 Other: Meal NPO NPO Weight 82.8 kg Blood Glucose* 125 115 116 Patient Weight 07/30/18 23:59 Weight 82.8 kg - Labs 07/30/18 03:30 07/30/18 03:30 Diabetes panel 07/30/18 Range/Units 03:30 Sodium 137 (136-145) mEq/L Potassium 4.0 (3.5-5.1) mEq/L Chloride 103 (98-107) mEq/L Carbon Dioxide 25 (23-29) mEq/L BUN 17 (6-20) mg/dL Creatinine 0.79 (0.70-1.30) mg/dL Glucose 136 H (70-105) mg/dL Calcium 8.3 L (8.6-10.3) mg/dL AST 15 (13-39) Units/L ALT 18 (7-52) Units/L Alkaline Phosphatase 50 (34-104) Units/L Albumin 3.0 L (3.5-5.7) g/dL Triglycerides 110 (< 150) mg/dL Calcium panel 07/30/18 Range/Units 03:30 Calcium 8.3 L (8.6-10.3) mg/dL Phosphorus 4.0 (2.7-4.5) mg/dL Albumin 3.0 L (3.5-5.7) g/dL Pituitary panel 07/30/18 Range/Units 03:30 Sodium 137 (136-145) mEq/L Potassium 4.0 (3.5-5.1) mEq/L Chloride 103 (98-107) mEq/L Carbon Dioxide 25 (23-29) mEq/L BUN 17 (6-20) mg/dL Creatinine 0.79 (0.70-1.30) mg/dL Glucose 136 H (70-105) mg/dL Calcium 8.3 L (8.6-10.3) mg/dL Adrenal panel 07/30/18 Range/Units 03:30 Sodium 137 (136-145) mEq/L Potassium 4.0 (3.5-5.1) mEq/L Chloride 103 (98-107) mEq/L Carbon Dioxide 25 (23-29) mEq/L BUN 17 (6-20) mg/dL Creatinine 0.79 (0.70-1.30) mg/dL Glucose 136 H (70-105) mg/dL Calcium 8.3 L (8.6-10.3) mg/dL Total Bilirubin 1.0 (0.3-1.0) mg/dL AST 15 (13-39) Units/L ALT 18 (7-52) Units/L Alkaline Phosphatase 50 (34-104) Units/L Albumin 3.0 L (3.5-5.7) g/dL Consult Discharge Plan - Plan Referrals: Kurt Maharaj MD [Non-Partnered Physician] -
[2018-07-30] MEDS: 0.9 % Sodium Chloride 1,000 ML IVC SCH (21:32)
[2018-07-31] MEDS: *HR* HYDROmorphone 20 MG/20 ML PCA IVC PRN ×2 (02:35→22:17)
[2018-07-31] MEDS: MetroNIDAZOLE 500 MG/100 ML 500 MG/100 ML BAG IVPB SCH ×4 (02:53→20:24)
[2018-07-31] MEDS: Piperacillin/Tazobactam 3.375 GM in 0.9 % Sodium Chloride Mini Bag 100 ML IVPB SCH ×3 (02:55→17:18)
[2018-07-31 04:32] LABS: BUN/Creatinine Ratio 27 (6-26); Blood Urea Nitrogen 21 mg/dL (6-20); Calcium 8.3 mg/dL (8.6-10.3); Carbon Dioxide 29 mEq/L (23-29); Chloride 104 mEq/L (98-107); Glucose 101 mg/dL (70-105); Magnesium 2.1 mg/dL (1.6-2.6); Osmolality,Calculated 293 (280-300); Phosphorous 2.5 mg/dL (2.7-4.5); Sodium 140 mEq/L (136-145); eGFR For Non-African Americans > 60 (> 60)
[2018-07-31] MEDS: Pantoprazole 40 MG VIAL IVP SCH (09:06)
[2018-07-31] MEDS: Ondansetron 4 MG/2 ML VIAL IVP PRN ×2 (12:21→17:18)
[2018-07-31] MEDS ORDERED: Clinimix E 5%-15% SOLUTION 2,000 ML with MVI, adult with vitamin K 10 ML IVC SCH (17:00)
--- NOTE | 2018-07-31 18:45 | General Surgery Progress Note ---
Date of Encounter: 07/31/18 Time of Encounter: 18:36 Subjective Patient reports: feels better Narrative: General Surgery - POD #2 - this is a delayed note reflecting the patient examination this morning and again this evening. Patient feeling better; pain is diminished not completely resolved. Patient remains afebrile, pulse 65-69; respirations 15; blood pressure 120/74 - 135/85. SPO2 on room air 93 and 94% Patient c/o Calzada discomfort, requesting Calzada be removed. Calzada was removed this morning; patient able to void since Calzada has been removed. Lungs: Clear; no obvious abdominal pain with deep inspiration Cardiac: Regular rate, no appreciable murmur Abdomen: Soft; bowel sounds present; healthy, intact colostomy stoma left anterior abdominal wall- no flatus or stool evident Urine output approximately 900 mL so far today Operative pathology pending Labs: Normal electrolytes filled BUN has decreased slightly to 21, creatinine 0.78. Calcium 8.3, phosphorus 2.5 Operative cultures- gram-negative roseann further identification and sensitivities pending Impression: Postoperative day #2, status post Kassidy procedure for acute perforated sigmoid diverticulitis with mid abdominal and pelvic abscesses. Hypophosphatemia Acceptable postoperative status Plan: continue TPN and IV antibiotics - Enteral nutrition pending return of bowel function correct hypophosphatemia Monitor renal function Objective Vital Signs - Last 8 Hours Temp Pulse Resp BP Pulse Ox 07/31/18 14:02 98.2 F 65 15 135/82 93 Intake and Output 07/31/18 07/31/18 07/31/18 07:59 15:59 23:59 Intake Total 570 / 570 200 / 200 100 / 100 Output Total 650 / 650 450 / 450 Balance -80 / -80 -250 / -250 100 / 100 Intake: IV Fluids 450 / 450 200 / 200 100 / 100 Intralipid 20% 250 ML @ 21 mls/ 250 / 250 hr IVPB DAILY@1700 [facility] Rx#: [id number] Flagyl Premix 500 MG/100 ML 500 100 / 100 100 / 100 100 / 100 mg In 100 ml @ 100 mls/hr IVPB Q6H [facility] Rx#:[id number] Zosyn 3.375 GM In 0.9 % Sodium 100 / 100 100 / 100 Chloride (Mini-Bag +) 100 ML @ 25 mls/hr IVPB Q8H [facility] Rx#: [id number] Oral 120 / 120 Output: Urine 200 / 200 Catheter 450 / 450 450 / 450 Other: Meal NPO LUNCH NPO DINNER # Bowel Movement Diapers 0 Weight 82.8 kg Blood Glucose* 103 116 107 Patient Weight 07/31/18 23:59 Weight 82.8 kg - Labs 07/30/18 03:30 07/31/18 04:00 Diabetes panel 07/31/18 Range/Units 04:00 Sodium 140 (136-145) mEq/L Potassium 4.0 (3.5-5.1) mEq/L Chloride 104 (98-107) mEq/L Carbon Dioxide 29 (23-29) mEq/L BUN 21 H (6-20) mg/dL Creatinine 0.78 (0.70-1.30) mg/dL Glucose 101 (70-105) mg/dL Calcium 8.3 L (8.6-10.3) mg/dL Calcium panel 07/31/18 Range/Units 04:00 Calcium 8.3 L (8.6-10.3) mg/dL Phosphorus 2.5 L (2.7-4.5) mg/dL Pituitary panel 07/31/18 Range/Units 04:00 Sodium 140 (136-145) mEq/L Potassium 4.0 (3.5-5.1) mEq/L Chloride 104 (98-107) mEq/L Carbon Dioxide 29 (23-29) mEq/L BUN 21 H (6-20) mg/dL Creatinine 0.78 (0.70-1.30) mg/dL Glucose 101 (70-105) mg/dL Calcium 8.3 L (8.6-10.3) mg/dL Adrenal panel 07/31/18 Range/Units 04:00 Sodium 140 (136-145) mEq/L Potassium 4.0 (3.5-5.1) mEq/L Chloride 104 (98-107) mEq/L Carbon Dioxide 29 (23-29) mEq/L BUN 21 H (6-20) mg/dL Creatinine 0.78 (0.70-1.30) mg/dL Glucose 101 (70-105) mg/dL Calcium 8.3 L (8.6-10.3) mg/dL Consult Discharge Plan - Plan Referrals: Kurt Maharaj MD [Non-Partnered Physician] -
[2018-08-01] MEDS: 0.9 % Sodium Chloride 1,000 ML IVC SCH (00:18)
[2018-08-01] MEDS: MetroNIDAZOLE 500 MG/100 ML 500 MG/100 ML BAG IVPB SCH ×4 (02:04→20:10)
[2018-08-01] MEDS: Piperacillin/Tazobactam 3.375 GM in 0.9 % Sodium Chloride Mini Bag 100 ML IVPB SCH ×3 (04:11→17:00)
[2018-08-01 04:46] LABS: Basophils # 0.1 K/mcL (0.0-0.2); Basophils % 0.8 %; Eosinophils # 0.2 K/mcL (0.0-0.6); Eosinophils % 2.1 %; Hematocrit 38.7 % (37.5-50.1); Hemoglobin 12.2 g/dL (12.9-16.9); Immature Granulocytes % 4.5 % (0-4); Lymphocytes # 1.7 K/mcL (0.6-4.6); Lymphocytes % 20.2 %; Mean Corpuscular HGB Conc 31.5 g/dL (31.6-35.5); Mean Corpuscular Hemoglobin 28.8 pg (28.0-33.3); Mean Corpuscular Volume 91.3 fL (83.0-100.0); Mean Platelet Volume 9.5 fL (9.4-12.4); Monocytes # 0.5 K/mcL (0.0-1.3); Monocytes % 5.9 %; Neutrophils # 5.6 K/mcL (1.6-8.9); Platelet Count 296 K/mcL (140-400); Red Blood Count 4.24 M/mcL (4.19-5.50); Red Cell Distribution Width 12.7 % (11.5-14.5); Segmented Neutrophils % 66.5 %
[2018-08-01 05:04] LABS: BUN/Creatinine Ratio 22 (6-26); Blood Urea Nitrogen 15 mg/dL (6-20); Calcium 8.1 mg/dL (8.6-10.3); Carbon Dioxide 30 mEq/L (23-29); Chloride 103 mEq/L (98-107); Glucose 93 mg/dL (70-105); Magnesium 1.8 mg/dL (1.6-2.6); Osmolality,Calculated 289 (280-300); Phosphorous 3.9 mg/dL (2.7-4.5); Platelet Estimate Normal (Normal); Potassium 3.8 mEq/L (3.5-5.1); Reactive Lymphocytes Present (Not Present); Sodium 139 mEq/L (136-145); eGFR For Non-African Americans > 60 (> 60)
[2018-08-01] MEDS: Pantoprazole 40 MG VIAL IVP SCH (08:04)
[2018-08-01] MEDS: *HR* HYDROmorphone 20 MG/20 ML PCA IVC PRN (13:22)
--- NOTE | 2018-08-01 13:24 | General Surgery Progress Note ---
Date of Encounter: 08/01/18 Time of Encounter: 13:17 Subjective Patient reports: no new complaints Narrative: General Surgery - POD #3 Patient voicing no new complaints; he does admit to "feeling sore" The patient remains afebrile, hemodynamically stable with pulse 60, respirations 14-15, blood pressure 146/78. Lungs: Clear Cardiac: Regular rate Abdomen: Soft, quiet. Healthy appearing, intact stoma left upper anterior abdominal wall - no flatus or BM. Midline incision intact and healing well Urine output approximately 1700 mL for calendar day 07/31/18; approximately 2250 mL so far today Laboratories: White count now normal, 8.4, hemoglobin 12.2, hematocrit 38.7. Differential notable for elevated immature granulocytes at 4.5% Electrolytes normal except for carbon dioxide of 30, this might be related to TPN / carbohydrate metabolism. BUN 15, creatinine 0.69 Phosphorus corrected to 3.9, magnesium 1.8. Operative cultures - indicate pansensitive Escherichia coli Impression: Postoperative day #3, status post Kassidy procedure for acute perforated sigmoid diverticulitis with mid abdominal and pelvic abscesses. The intra-peritoneal abscesses secondary to pansensitive Escherichia coli Acceptable postoperative status; awaiting return of bowel function to begin enteral nutrition. It is usual for bowel function to return more slowly in the setting of acute peritonitis Hypophosphatemia corrected Renal status within normal limits and stable. Plan: Continue IV antibiotics Continue CLINICAL EXERCISE PHYSIOLOGIST for pain control - reduced dosage slightly Continue TPN pending return of bowel function Objective Vital Signs - Last 8 Hours Temp Pulse Resp BP Pulse Ox 08/01/18 11:32 98.3 F 60 15 146/78 93 08/01/18 08:39 98 F 58 14 157/88 93 Intake and Output 07/31/18 08/01/18 08/01/18 23:59 07:59 15:59 Intake Total 300 / 300 1027 / 1027 200 / 200 Output Total 625 / 625 1150 / 1150 1100 / 1100 Balance -325 / -325 -123 / -123 -900 / -900 Intake: IV Fluids 300 / 300 1027 / 1027 200 / 200 0.9 % Sodium Chloride 1,000 ML 677 / 677 @ 25 mls/hr IVC .Q24H [facility] Rx#: [id number] Intralipid 20% 250 ML @ 21 mls/ 250 / 250 hr IVPB DAILY@1700 [facility] Rx#: [id number] Flagyl Premix 500 MG/100 ML 500 200 / 200 100 / 100 100 / 100 mg In 100 ml @ 100 mls/hr IVPB Q6H [facility] Rx#:[id number] Zosyn 3.375 GM In 0.9 % Sodium 100 / 100 100 / 100 Chloride (Mini-Bag +) 100 ML @ 25 mls/hr IVPB Q8H [facility] Rx#: [id number] Oral 0 / 0 0 / 0 Output: Urine 625 / 625 1150 / 1150 1100 / 1100 Other: Meal NPO DINNER Weight 87.1 kg Blood Glucose* 94 95 104 Patient Weight 08/01/18 23:59 Weight 87.1 kg - Labs 08/01/18 04:25 08/01/18 04:25 Diabetes panel 08/01/18 Range/Units 04:25 Sodium 139 (136-145) mEq/L Potassium 3.8 (3.5-5.1) mEq/L Chloride 103 (98-107) mEq/L Carbon Dioxide 30 H (23-29) mEq/L BUN 15 (6-20) mg/dL Creatinine 0.69 L (0.70-1.30) mg/dL Glucose 93 (70-105) mg/dL Calcium 8.1 L (8.6-10.3) mg/dL Calcium panel 08/01/18 Range/Units 04:25 Calcium 8.1 L (8.6-10.3) mg/dL Phosphorus 3.9 (2.7-4.5) mg/dL Pituitary panel 08/01/18 Range/Units 04:25 Sodium 139 (136-145) mEq/L Potassium 3.8 (3.5-5.1) mEq/L Chloride 103 (98-107) mEq/L Carbon Dioxide 30 H (23-29) mEq/L BUN 15 (6-20) mg/dL Creatinine 0.69 L (0.70-1.30) mg/dL Glucose 93 (70-105) mg/dL Calcium 8.1 L (8.6-10.3) mg/dL Adrenal panel 08/01/18 Range/Units 04:25 Sodium 139 (136-145) mEq/L Potassium 3.8 (3.5-5.1) mEq/L Chloride 103 (98-107) mEq/L Carbon Dioxide 30 H (23-29) mEq/L BUN 15 (6-20) mg/dL Creatinine 0.69 L (0.70-1.30) mg/dL Glucose 93 (70-105) mg/dL Calcium 8.1 L (8.6-10.3) mg/dL Consult Discharge Plan - Plan Referrals: Kurt Maharaj MD [Non-Partnered Physician] -
[2018-08-01] MEDS: Clinimix E 5%-15% SOLUTION 2,000 ML with MVI, adult with vitamin K 10 ML IVC SCH (17:07)
[2018-08-02] MEDS: MetroNIDAZOLE 500 MG/100 ML 500 MG/100 ML BAG IVPB SCH ×4 (00:59→19:49)
[2018-08-02] MEDS: 0.9 % Sodium Chloride 1,000 ML IVC SCH (00:59)
[2018-08-02] MEDS: Piperacillin/Tazobactam 3.375 GM in 0.9 % Sodium Chloride Mini Bag 100 ML IVPB SCH ×3 (00:59→16:59)
[2018-08-02 04:38] LABS: BUN/Creatinine Ratio 23 (6-26); Blood Urea Nitrogen 16 mg/dL (6-20); Calcium 8.6 mg/dL (8.6-10.3); Carbon Dioxide 29 mEq/L (23-29); Chloride 99 mEq/L (98-107); Glucose 92 mg/dL (70-105); Osmolality,Calculated 283 (280-300); Phosphorous 3.4 mg/dL (2.7-4.5); Sodium 136 mEq/L (136-145); eGFR For Non-African Americans > 60 (> 60)
[2018-08-02] MEDS: Pantoprazole 40 MG VIAL IVP SCH (08:30)
--- NOTE | 2018-08-02 11:35 | General Surgery Progress Note ---
Date of Encounter: 08/02/18 Time of Encounter: 11:30 Subjective Patient reports: no new complaints Narrative: General Surgery - POD #4 Patient fairly well; voicing no complaints; pain is controlled with MARKETING ADMIN. No increase in pain with tapering of the MARKETING ADMIN Dilaudid Patient has remained afebrile, currently 98.1, hemodynamically stable with pulse 64, respirations 14, blood pressure 147/86 Lungs: Clear; no obvious pain on deep inspiration Abdomen: Soft with minimal janee-incisional tenderness. Healthy appearing, stable stoma left upper anterior abdominal wall. Very few active bowel sounds audible; no obvious flatus or BM via the stoma. [place] has been removed; patient able to void Urine output: 4225 mL in the last 24 hours. 625 mL so far today Operative pathology still pending Operative cultures demonstrate pansensitive Escherichia coli as noted previously Laboratories: Stable BUN, creatinine and electrolytes; phosphorus 3.4, magnesium 2.0. Accu-Cheks 104-109 Impression: Postoperative day 4, status post Kassidy procedure for acute perforated sigmoid diverticulitis with pericolic abscess Awaiting return of bowel function; it is reasonable for bowel function to be delayed in the setting of acute peritonitis Acceptable postoperative status otherwise. Patient encouraged to be far more active out of bed then he has been to date. Objective Vital Signs - Last 8 Hours Temp Pulse Resp BP Pulse Ox 08/02/18 11:13 98.1 F 54 14 147/86 94 08/02/18 07:50 98.7 F 54 15 135/87 94 08/02/18 03:32 98.2 F 57 17 155/87 Intake and Output 08/02/18 08/02/18 08/02/18 00:59 07:59 15:59 Intake Total Output Total Balance Intake: IV Fluids 0.9 % Sodium Chloride 1,000 ML @ 25 mls/hr IVC .Q24H [facility] Rx#: [id number] Intralipid 20% 250 ML @ 21 mls/ hr IVPB DAILY@1700 [facility] Rx#: [id number] Flagyl Premix 500 MG/100 ML 500 mg In 100 ml @ 100 mls/hr IVPB Q6H [facility] Rx#:[id number] Zosyn 3.375 GM In 0.9 % Sodium Chloride (Mini-Bag +) 100 ML @ 25 mls/hr IVPB Q8H [facility] Rx#: [id number] Oral Output: Urine Other: Meal NPO for breakfast Blood Glucose* - Labs 08/01/18 04:25 08/02/18 03:29 Diabetes panel 08/02/18 Range/Units 03:29 Sodium 136 (136-145) mEq/L Potassium 4.0 (3.5-5.1) mEq/L Chloride 99 (98-107) mEq/L Carbon Dioxide 29 (23-29) mEq/L BUN 16 (6-20) mg/dL Creatinine 0.71 (0.70-1.30) mg/dL Glucose 92 (70-105) mg/dL Calcium 8.6 (8.6-10.3) mg/dL Calcium panel 08/02/18 Range/Units 03:29 Calcium 8.6 (8.6-10.3) mg/dL Phosphorus 3.4 (2.7-4.5) mg/dL Pituitary panel 08/02/18 Range/Units 03:29 Sodium 136 (136-145) mEq/L Potassium 4.0 (3.5-5.1) mEq/L Chloride 99 (98-107) mEq/L Carbon Dioxide 29 (23-29) mEq/L BUN 16 (6-20) mg/dL Creatinine 0.71 (0.70-1.30) mg/dL Glucose 92 (70-105) mg/dL Calcium 8.6 (8.6-10.3) mg/dL Adrenal panel 08/02/18 Range/Units 03:29 Sodium 136 (136-145) mEq/L Potassium 4.0 (3.5-5.1) mEq/L Chloride 99 (98-107) mEq/L Carbon Dioxide 29 (23-29) mEq/L BUN 16 (6-20) mg/dL Creatinine 0.71 (0.70-1.30) mg/dL Glucose 92 (70-105) mg/dL Calcium 8.6 (8.6-10.3) mg/dL Consult Discharge Plan - Plan Referrals: Kurt Maharaj MD [Non-Partnered Physician] -
[2018-08-02] MEDS: *HR* HYDROmorphone 20 MG/20 ML PCA IVC PRN (13:31)
[2018-08-02] MEDS: Clinimix E 5%-15% SOLUTION 2,000 ML with MVI, adult with vitamin K 10 ML IVC SCH ×2 (17:00→17:11)
[2018-08-03] MEDS: MetroNIDAZOLE 500 MG/100 ML 500 MG/100 ML BAG IVPB SCH ×4 (01:27→20:56)
[2018-08-03] MEDS: Piperacillin/Tazobactam 3.375 GM in 0.9 % Sodium Chloride Mini Bag 100 ML IVPB SCH ×3 (01:28→17:53)
[2018-08-03] MEDS: 0.9 % Sodium Chloride 1,000 ML IVC SCH (01:29)
[2018-08-03 04:59] LABS: BUN/Creatinine Ratio 23 (6-26); Blood Urea Nitrogen 18 mg/dL (6-20); Calcium 8.6 mg/dL (8.6-10.3); Carbon Dioxide 26 mEq/L (23-29); Chloride 102 mEq/L (98-107); Glucose 99 mg/dL (70-105); Magnesium 2.1 mg/dL (1.6-2.6); Osmolality,Calculated 282 (280-300); Phosphorous 3.4 mg/dL (2.7-4.5); Potassium 4.4 mEq/L (3.5-5.1); Sodium 135 mEq/L (136-145); eGFR For Non-African Americans > 60 (> 60)
[2018-08-03] MEDS: Pantoprazole 40 MG VIAL IVP SCH (09:10)
--- NOTE | 2018-08-03 12:40 | General Surgery Progress Note ---
Date of Encounter: 08/03/18 Time of Encounter: 12:35 Subjective Narrative: General Surgery - POD #5 Patient developed a maculopapular, pleuritic rash upper posterior thorax. It appears to be in the distribution of his pillow. No other rashes detected The pruritus has been controlled with oral Benadryl Despite this new development, patient has remained afebrile, currently 98.4; hemodynamically stable with pulse 54, respirations 18, blood pressure 134/82 Lungs: Clear; no obvious abdominal pain on deep inspiration Abdomen: Soft, tenderness markedly diminished but only scant bowel sounds detected. Healthy appearing stoma / end descending colostomy left upper anterior abdominal wall. No detected flatus or BM. Urine output: 2425 mL in the last 24 hours; 2125 mL so far today. Labs: Electrolytes notable for a sodium of 135 otherwise normal with BUN 18, creatinine 0.78. Phosphorus 3.4, magnesium 2.1. Pathology still pending Impression: Postoperative day #5, status post Kassidy procedure for acute perforated sigmoid diverticulitis with pericolic abscess Acceptable postoperative state. Awaiting return of bowel functions. Plan: Continue TPN until enteral route available Taper CARPET LAYER Dilaudid Encourage activity out of bed Awaiting pathology Objective Vital Signs - Last 8 Hours Temp Pulse Resp BP Pulse Ox 08/03/18 12:02 98.4 F 54 18 134/82 94 08/03/18 10:05 98.1 F 54 16 132/84 92 08/03/18 06:41 98.0 F 50 15 148/82 95 Intake and Output 08/02/18 08/03/18 08/03/18 23:59 07:59 15:59 Intake Total 1999 1085 / 1085 100 / 100 Output Total 1450 / 1450 1625 / 1625 500 / 500 Balance 550 / 550 -540 / -540 -400 / -400 Intake: IV Fluids 1999 1085 / 1085 100 / 100 0.9 % Sodium Chloride 1,000 ML 635 / 635 @ 25 mls/hr IVC .Q24H [facility] Rx#: [id number] Clinimix E 5%-15% SOLUTION 2, 1800 / 1800 000 ML @ 75 mls/hr IVC .Q24H [facility] with M.v.i. Adult 10 ml Rx# :[id number] Intralipid 20% 250 ML @ 21 mls/ 250 / 250 hr IVPB DAILY@1700 [facility] Rx#: [id number] Flagyl Premix 500 MG/100 ML 500 100 / 100 100 / 100 100 / 100 mg In 100 ml @ 100 mls/hr IVPB Q6H [facility] Rx#:[id number] Zosyn 3.375 GM In 0.9 % Sodium 100 / 100 100 / 100 Chloride (Mini-Bag +) 100 ML @ 25 mls/hr IVPB Q8H [facility] Rx#: [id number] Oral 0 / 0 0 / 0 0 / 0 Output: Urine 1450 / 1450 1625 / 1625 500 / 500 Other: Meal NPO Percent of Meal Consumed 0% # Voids 2 Weight 87.1 kg Blood Glucose* 106 129 113 Patient Weight 08/03/18 23:59 Weight 87.1 kg - Labs 08/01/18 04:25 08/03/18 04:20 Diabetes panel 08/03/18 Range/Units 04:20 Sodium 135 L (136-145) mEq/L Potassium 4.4 (3.5-5.1) mEq/L Chloride 102 (98-107) mEq/L Carbon Dioxide 26 (23-29) mEq/L BUN 18 (6-20) mg/dL Creatinine 0.78 (0.70-1.30) mg/dL Glucose 99 (70-105) mg/dL Calcium 8.6 (8.6-10.3) mg/dL Calcium panel 08/03/18 Range/Units 04:20 Calcium 8.6 (8.6-10.3) mg/dL Phosphorus 3.4 (2.7-4.5) mg/dL Pituitary panel 08/03/18 Range/Units 04:20 Sodium 135 L (136-145) mEq/L Potassium 4.4 (3.5-5.1) mEq/L Chloride 102 (98-107) mEq/L Carbon Dioxide 26 (23-29) mEq/L BUN 18 (6-20) mg/dL Creatinine 0.78 (0.70-1.30) mg/dL Glucose 99 (70-105) mg/dL Calcium 8.6 (8.6-10.3) mg/dL Adrenal panel 08/03/18 Range/Units 04:20 Sodium 135 L (136-145) mEq/L Potassium 4.4 (3.5-5.1) mEq/L Chloride 102 (98-107) mEq/L Carbon Dioxide 26 (23-29) mEq/L BUN 18 (6-20) mg/dL Creatinine 0.78 (0.70-1.30) mg/dL Glucose 99 (70-105) mg/dL Calcium 8.6 (8.6-10.3) mg/dL Consult Discharge Plan - Plan Referrals: Kurt Maharaj MD [Non-Partnered Physician] -
[2018-08-03] MEDS: Fluconazole 200 MG/100 ML 200 MG/100 ML BAG IVPB SCH (14:30)
[2018-08-03] MEDS ORDERED: Clinimix E 5%-15% SOLUTION 2,000 ML with MVI, adult with vitamin K 10 ML IVC SCH (17:00)
[2018-08-03] MEDS: Clinimix E 5%-15% SOLUTION 2,000 ML with MVI, adult with vitamin K 10 ML IVC SCH (18:07)
[2018-08-04] MEDS: *HR* HYDROmorphone 20 MG/20 ML PCA IVC PRN (00:09)
[2018-08-04] MEDS: MetroNIDAZOLE 500 MG/100 ML 500 MG/100 ML BAG IVPB SCH ×4 (03:24→20:05)
[2018-08-04] MEDS: Piperacillin/Tazobactam 3.375 GM in 0.9 % Sodium Chloride Mini Bag 100 ML IVPB SCH ×3 (03:25→17:07)
[2018-08-04 04:36] LABS: Hematocrit 43.6 % (37.5-50.1); Mean Corpuscular Hemoglobin 29.8 pg (28.0-33.3); Mean Corpuscular Volume 90.3 fL (83.0-100.0); Mean Platelet Volume 9.1 fL (9.4-12.4); Platelet Count 395 K/mcL (140-400); Red Blood Count 4.83 M/mcL (4.19-5.50); Red Cell Distribution Width 12.3 % (11.5-14.5)
[2018-08-04 04:38] LABS: Hemoglobin 14.4 g/dL (12.9-16.9)
[2018-08-04 04:56] LABS: Alanine Aminotransferase 15 Units/L (7-52); Albumin 3.1 g/dL (3.5-5.7); Albumin/Globulin Ratio 0.9 (1.1-2.2); Alkaline Phosphatase 48 Units/L (34-104); Aspartate Amino Transferase 21 Units/L (13-39); BUN/Creatinine Ratio 24 (6-26); Bilirubin,Total 0.6 mg/dL (0.3-1.0); Blood Urea Nitrogen 20 mg/dL (6-20); Calcium 8.7 mg/dL (8.6-10.3); Carbon Dioxide 26 mEq/L (23-29); Chloride 103 mEq/L (98-107); Globulin 3.5 g/dL (2.4-3.5); Glucose 94 mg/dL (70-105); Magnesium 2.2 mg/dL (1.6-2.6); Osmolality,Calculated 282 (280-300); Phosphorous 3.5 mg/dL (2.7-4.5); Potassium 4.3 mEq/L (3.5-5.1); Sodium 135 mEq/L (136-145); Total Protein 6.6 g/dL (6.4-8.9); eGFR For Non-African Americans > 60 (> 60)
[2018-08-04] MEDS: Fluconazole 200 MG/100 ML 200 MG/100 ML BAG IVPB SCH (08:07)
[2018-08-04] MEDS: Pantoprazole 40 MG VIAL IVP SCH (08:07)
--- NOTE | 2018-08-04 15:15 | General Surgery Progress Note ---
Date of Encounter: 08/04/18 Time of Encounter: 15:09 Subjective Patient reports: no new complaints Narrative: General Surgery - POD #6 Patient feeling well; voicing no complaints. RESEARCH CLERK Dilaudid has been tapered without increased and abdominal pain The patient remains afebrile; currently 98.2, hemodynamically stable with a pulse ranging from 49-78, respirations 16, blood pressure 107/70 to 120/77 Lungs: Clear Abdomen: Soft with active bowel sounds. Midline incision is intact and healing well. A healthy stoma left upper anterior abdominal wall was evident. The patient is now passing flatus. Urine output 2325 mL for the last 24 hours; 1735 mL so far today Laboratories: White count 10.6 with hemoglobin 14.4, hematocrit 43.6. Platelet count 395,000. Electrolytes - sodium 135 otherwise electrolytes, BUN, creatinine within normal limits; LFTs normal Total protein 6.6 with albumin 3.1. Past still pending Impression: Postoperative day #6, status post Kassidy procedure for acute perforated sigmoid diverticulitis with pericolic abscess. Bowel function appears to be returning. She now passing flatus. Leukocytosis resolved; H&H, electrolytes, BUN, creatinine stable Acceptable postoperative status Plan: Allow clear liquids, advance diet to full liquids if no increase in abdominal pain, nausea vomiting tonight If able to advance diet, begin to taper TPN Maintained RESEARCH CLERK Dilaudid tonight, however, anticipate conversion to oral narcotic analgesics if able to advance diet Begin discharge planning Objective Vital Signs - Last 8 Hours Temp Pulse Resp BP Pulse Ox 08/04/18 14:25 98.2 F 52 15 120/77 95 08/04/18 10:32 97.8 F 78 16 107/70 95 Intake and Output 08/03/18 08/04/18 08/04/18 23:59 07:59 15:59 Intake Total 2210 / 2210 300 / 300 300 / 300 Output Total 0 / 0 1000 / 1000 735 / 735 Balance 2210 / 2210 -700 / -700 -435 / -435 Intake: IV Fluids 2210 / 2210 200 / 200 300 / 300 Clinimix E 5%-15% SOLUTION 2009 000 ML @ 83.3 mls/hr IVC .Q24H [facility] with M.v.i. Adult 10 ml Rx# :[id number] Diflucan Premix 200 MG/100 ML 100 / 100 200 mg In 100 ml @ 100 mls/hr IVPB DAILY [facility] Rx#:[id number] Flagyl Premix 500 MG/100 ML 500 100 / 100 100 / 100 100 / 100 mg In 100 ml @ 100 mls/hr IVPB Q6H [facility] Rx#:[id number] Zosyn 3.375 GM In 0.9 % Sodium 100 / 100 100 / 100 100 / 100 Chloride (Mini-Bag +) 100 ML @ 25 mls/hr IVPB Q8H [facility] Rx#: [id number] Oral 0 / 0 100 / 100 Output: Urine 0 / 0 1000 / 1000 735 / 735 Stool 0 / 0 0 / 0 Other: Meal NPO Weight 87.2 kg Blood Glucose* 100 115 115 Patient Weight 08/04/18 23:59 Weight 87.2 kg - Labs 08/04/18 04:18 08/04/18 04:18 Diabetes panel 08/04/18 Range/Units 04:18 Sodium 135 L (136-145) mEq/L Potassium 4.3 (3.5-5.1) mEq/L Chloride 103 (98-107) mEq/L Carbon Dioxide 26 (23-29) mEq/L BUN 20 (6-20) mg/dL Creatinine 0.85 (0.70-1.30) mg/dL Glucose 94 (70-105) mg/dL Calcium 8.7 (8.6-10.3) mg/dL AST 21 (13-39) Units/L ALT 15 (7-52) Units/L Alkaline Phosphatase 48 (34-104) Units/L Albumin 3.1 L (3.5-5.7) g/dL Calcium panel 08/04/18 08/04/18 Range/Units 04:18 04:18 Calcium 8.7 (8.6-10.3) mg/dL Phosphorus 3.5 (2.7-4.5) mg/dL Albumin 3.1 L (3.5-5.7) g/dL Pituitary panel 08/04/18 Range/Units 04:18 Sodium 135 L (136-145) mEq/L Potassium 4.3 (3.5-5.1) mEq/L Chloride 103 (98-107) mEq/L Carbon Dioxide 26 (23-29) mEq/L BUN 20 (6-20) mg/dL Creatinine 0.85 (0.70-1.30) mg/dL Glucose 94 (70-105) mg/dL Calcium 8.7 (8.6-10.3) mg/dL Adrenal panel 08/04/18 Range/Units 04:18 Sodium 135 L (136-145) mEq/L Potassium 4.3 (3.5-5.1) mEq/L Chloride 103 (98-107) mEq/L Carbon Dioxide 26 (23-29) mEq/L BUN 20 (6-20) mg/dL Creatinine 0.85 (0.70-1.30) mg/dL Glucose 94 (70-105) mg/dL Calcium 8.7 (8.6-10.3) mg/dL Total Bilirubin 0.6 (0.3-1.0) mg/dL AST 21 (13-39) Units/L ALT 15 (7-52) Units/L Alkaline Phosphatase 48 (34-104) Units/L Albumin 3.1 L (3.5-5.7) g/dL Consult Discharge Plan - Plan Referrals: Kurt Maharaj MD [Non-Partnered Physician] -
[2018-08-04] MEDS ORDERED: Clinimix E 5%-15% SOLUTION 2,000 ML with MVI, adult with vitamin K 10 ML IVC SCH (17:00)
[2018-08-04] MEDS: 0.9 % Sodium Chloride 1,000 ML IVC SCH (17:07)
[2018-08-05] MEDS: MetroNIDAZOLE 500 MG/100 ML 500 MG/100 ML BAG IVPB SCH ×3 (03:26→14:32)
[2018-08-05] MEDS: Piperacillin/Tazobactam 3.375 GM in 0.9 % Sodium Chloride Mini Bag 100 ML IVPB SCH ×2 (03:27→10:55)
[2018-08-05] MEDS: *HR* HYDROmorphone 20 MG/20 ML PCA IVC PRN (07:16)
[2018-08-05] MEDS: Fluconazole 200 MG/100 ML 200 MG/100 ML BAG IVPB SCH (09:32)
[2018-08-05 11:57] LABS: BUN/Creatinine Ratio 23 (6-26); Blood Urea Nitrogen 18 mg/dL (6-20); Calcium 7.9 mg/dL (8.6-10.3); Carbon Dioxide 23 mEq/L (23-29); Chloride 107 mEq/L (98-107); Glucose 101 mg/dL (70-105); Osmolality,Calculated 284 (280-300); Potassium 4.2 mEq/L (3.5-5.1); Sodium 136 mEq/L (136-145); eGFR For Non-African Americans > 60 (> 60)
--- NOTE | 2018-08-05 14:54 | General Surgery Progress Note ---
Date of Encounter: 08/05/18 Time of Encounter: 14:49 Subjective Patient reports: no new complaints, tolerating liquids well Narrative: General Surgery - POD #7 Patient feeling well, voicing no complaints. He is tolerating a liquid diet. Clear liquids were initiated last evening and advanced to fulls this morning. No abdominal pain, bloating, nausea or vomiting. The patient continues to be afebrile, currently 98.1, hemodynamically stable with pulse 58, respirations 16, blood pressure 107/72. Lungs: Clear, no obvious dominant pain with inspiration Abdomen: Soft, nontender. Healthy appearing stoma left upper anterior abdominal wall. Ostomy is functioning with flatus and BM Active bowel sounds. Midline incision clean and dry. Operative pathology pending Labs: Normal electrolytes, BUN, creatinine. Impression: Postoperative day #7, status post Kassidy procedure for acute perforated sigmoid diverticulitis with pericolic abscess. Bowel function has returned, intraoral route appears to be available. Plan: Discontinue IV antibiotics having completed 7 days of appropriate antibiotic therapy. The patient has been afebrile with normal white count for the past several days Discontinue CONVICT GUARD, substitute oral narcotic analgesics as needed Taper TPN - reduce rate to 50 mL per hour today; discontinue at 1700 hrs. tomorrow. Advance diet Objective Vital Signs - Last 8 Hours Temp Pulse Resp BP Pulse Ox 08/05/18 12:01 98.1 F 58 16 107/72 94 Intake and Output 08/04/18 08/05/18 08/05/18 23:59 07:59 15:59 Intake Total 1500 / 1500 300 / 300 920 / 920 Output Total 1050 / 1050 1075 / 1075 500 / 500 Balance 450 / 450 -775 / -775 420 / 420 Intake: IV Fluids 1200 / 1200 200 / 200 200 / 200 0.9 % Sodium Chloride 1,000 ML 1000 / 1000 @ 25 mls/hr IVC .Q24H [facility] Rx#: [id number] Diflucan Premix 200 MG/100 ML 100 / 100 200 mg In 100 ml @ 100 mls/hr IVPB DAILY [facility] Rx#:[id number] Flagyl Premix 500 MG/100 ML 500 100 / 100 100 / 100 100 / 100 mg In 100 ml @ 100 mls/hr IVPB Q6H [facility] Rx#:[id number] Zosyn 3.375 GM In 0.9 % Sodium 100 / 100 100 / 100 Chloride (Mini-Bag +) 100 ML @ 25 mls/hr IVPB Q8H [facility] Rx#: [id number] Oral 300 / 300 100 / 100 720 / 720 Output: Urine 1050 / 1050 1075 / 1075 500 / 500 Stool 0 / 0 Other: Meal Lunch Percent of Meal Consumed 50% Weight 87.2 kg Blood Glucose* 95 111 112 Patient Weight 08/05/18 23:59 Weight 87.2 kg - Labs 08/04/18 04:18 08/05/18 11:26 Diabetes panel 08/05/18 Range/Units 11:26 Sodium 136 (136-145) mEq/L Potassium 4.2 (3.5-5.1) mEq/L Chloride 107 (98-107) mEq/L Carbon Dioxide 23 (23-29) mEq/L BUN 18 (6-20) mg/dL Creatinine 0.79 (0.70-1.30) mg/dL Glucose 101 (70-105) mg/dL Calcium 7.9 L (8.6-10.3) mg/dL Calcium panel 08/05/18 Range/Units 11:26 Calcium 7.9 L (8.6-10.3) mg/dL Pituitary panel 08/05/18 Range/Units 11:26 Sodium 136 (136-145) mEq/L Potassium 4.2 (3.5-5.1) mEq/L Chloride 107 (98-107) mEq/L Carbon Dioxide 23 (23-29) mEq/L BUN 18 (6-20) mg/dL Creatinine 0.79 (0.70-1.30) mg/dL Glucose 101 (70-105) mg/dL Calcium 7.9 L (8.6-10.3) mg/dL Adrenal panel 08/05/18 Range/Units 11:26 Sodium 136 (136-145) mEq/L Potassium 4.2 (3.5-5.1) mEq/L Chloride 107 (98-107) mEq/L Carbon Dioxide 23 (23-29) mEq/L BUN 18 (6-20) mg/dL Creatinine 0.79 (0.70-1.30) mg/dL Glucose 101 (70-105) mg/dL Calcium 7.9 L (8.6-10.3) mg/dL Consult Discharge Plan - Plan Referrals: Kurt Maharaj MD [Non-Partnered Physician] -
[2018-08-05] MEDS ORDERED: Clinimix E 5%-15% SOLUTION 2,000 ML with MVI, adult with vitamin K 10 ML IVC SCH (17:00)
[2018-08-05] MEDS: *HR* OxyCODONE/APAP 5/325 TABLET PO PRN ×2 (17:46→23:55)
[2018-08-06 05:27] LABS: BUN/Creatinine Ratio 21 (6-26); Blood Urea Nitrogen 16 mg/dL (6-20); Calcium 9.4 mg/dL (8.6-10.3); Carbon Dioxide 25 mEq/L (23-29); Chloride 104 mEq/L (98-107); Glucose 95 mg/dL (70-105); Osmolality,Calculated 283 (280-300); Potassium 4.6 mEq/L (3.5-5.1); Sodium 136 mEq/L (136-145); eGFR For Non-African Americans > 60 (> 60)
[2018-08-06] MEDS: *HR* OxyCODONE/APAP 5/325 TABLET PO PRN ×4 (05:56→22:39)
[2018-08-06] MEDS: Acetaminophen 325 MG TABLET PO PRN ×2 (13:56→22:02)
--- NOTE | 2018-08-06 21:22 | General Surgery Progress Note ---
Date of Encounter: 08/06/18 Time of Encounter: 17:30 Subjective Narrative: General Surgery - POD #8 - this is a delayed note Patient remains afebrile, hemodynamically stable. Pulse 64, respirations 16, blood pressure 137/83. SPO2 on room air 95-96% Patient is complaining of pain. The Percocet prescribed every 6 hours is "not enough". We will allow patient to receive Percocet every 4 hours when necessary for pain, however, I do not anticipate discharging the patient on every 4 hours narcotic analgesics. Lungs: Clear; no obvious abdominal pain and deep inspiration Abdomen: Soft; minimal incisional tenderness. The midline incision is intact, healing well. No detected fascial defects. The staple line also appears to be intact Colostomy/stoma left upper anterior abdominal wall appears healthy and is functioning properly. Colostomy care and maintenance teaching in progress Impression:POD #8 - status post Kassidy procedure for acute perforated sigmoid diverticulitis with pericolic abscess. Bowel function has returned; enteral nutrition has resumed. TPN has been tapered and weaned. Postoperative pain to be expected but will check CBC in the a.m. Electrolytes, BUN, creatinine within normal limits. Accu-Cheks 106-155 Objective Vital Signs - Last 8 Hours Temp Pulse Resp BP Pulse Ox 08/06/18 19:49 98 F 97 14 117/72 95 08/06/18 14:53 98.0 F 64 16 137/83 96 Intake and Output 08/06/18 08/06/18 08/06/18 07:59 15:59 23:59 Intake Total 480 / 480 360 / 360 Output Total 350 / 350 1025 / 1025 300 / 300 Balance -350 / -350 -545 / -545 60 / 60 Intake: Oral 480 / 480 360 / 360 Output: Urine 350 / 350 275 / 275 300 / 300 Stool 0 / 0 750 / 750 Other: Meal Lunch Dinner Percent of Meal Consumed 25% 50% # Bowel Movements 0 Blood Glucose* 94 128 155 - Labs 08/04/18 04:18 08/06/18 04:00 Diabetes panel 08/06/18 Range/Units 04:00 Sodium 136 (136-145) mEq/L Potassium 4.6 (3.5-5.1) mEq/L Chloride 104 (98-107) mEq/L Carbon Dioxide 25 (23-29) mEq/L BUN 16 (6-20) mg/dL Creatinine 0.78 (0.70-1.30) mg/dL Glucose 95 (70-105) mg/dL Calcium 9.4 (8.6-10.3) mg/dL Calcium panel 08/06/18 Range/Units 04:00 Calcium 9.4 (8.6-10.3) mg/dL Pituitary panel 08/06/18 Range/Units 04:00 Sodium 136 (136-145) mEq/L Potassium 4.6 (3.5-5.1) mEq/L Chloride 104 (98-107) mEq/L Carbon Dioxide 25 (23-29) mEq/L BUN 16 (6-20) mg/dL Creatinine 0.78 (0.70-1.30) mg/dL Glucose 95 (70-105) mg/dL Calcium 9.4 (8.6-10.3) mg/dL Adrenal panel 08/06/18 Range/Units 04:00 Sodium 136 (136-145) mEq/L Potassium 4.6 (3.5-5.1) mEq/L Chloride 104 (98-107) mEq/L Carbon Dioxide 25 (23-29) mEq/L BUN 16 (6-20) mg/dL Creatinine 0.78 (0.70-1.30) mg/dL Glucose 95 (70-105) mg/dL Calcium 9.4 (8.6-10.3) mg/dL Consult Discharge Plan - Plan Referrals: Kurt Maharaj MD [Non-Partnered Physician] -
[2018-08-07] MEDS: *HR* OxyCODONE/APAP 5/325 TABLET PO PRN ×3 (02:20→10:45)
[2018-08-07 04:45] LABS: Basophils # 0.1 K/mcL (0.0-0.2); Basophils % 0.8 %; Eosinophils # 0.2 K/mcL (0.0-0.6); Eosinophils % 1.8 %; Hematocrit 44.7 % (37.5-50.1); Hemoglobin 14.5 g/dL (12.9-16.9); Immature Granulocytes % 3.6 % (0-4); Lymphocytes # 2.3 K/mcL (0.6-4.6); Lymphocytes % 26.5 %; Mean Corpuscular HGB Conc 32.4 g/dL (31.6-35.5); Mean Corpuscular Hemoglobin 29.2 pg (28.0-33.3); Mean Corpuscular Volume 89.9 fL (83.0-100.0); Mean Platelet Volume 9.6 fL (9.4-12.4); Monocytes # 0.6 K/mcL (0.0-1.3); Monocytes % 7.1 %; Neutrophils # 5.3 K/mcL (1.6-8.9); Platelet Count 409 K/mcL (140-400); Red Blood Count 4.97 M/mcL (4.19-5.50); Red Cell Distribution Width 12.3 % (11.5-14.5); Segmented Neutrophils % 60.2 %
[2018-08-07 10:27] VITALS: BP 114/73
--- NOTE | 2018-08-07 12:53 | General Surgery Progress Note ---
Date of Encounter: 08/07/18 Time of Encounter: 12:45 Subjective Narrative: General Surgery - POD #9 Progress Note / Discharge Summary Patient doing well, voicing no complaints. Afebrile, hemodynamically stable. Tolerating regular diet Current temperature 97.8, pulse 51, respirations 15, blood pressure 114/73. SPO2 on room air 94-98% Lungs: Clear Cardiac: Regular rate, no appreciable murmurs Abdomen: Soft, nontender. Midline incision intact and healing well. Skin martin removed. Healthy end colostomy stoma left upper anterior abdominal wall. Patent, functioning properly. Active bowel sounds. Operative pathology still pending. I was unable to contact pathology today prio r to the patient's discharge Laboratories show a white count of 8.8, hemoglobin 14.5 hematocrit 44.7. Platelet count 409,000. Differential within normal limits. Electrolytes, BUN, creatinine, 08/06/18 within normal limits Impression: Postoperative day #9 - status post Kassidy procedure for acute perforated sigmoid diverticulitis with pericolic abscess. Patient is doing well and has recovered sufficiently for discharge home Outpatient follow-up will be arranged in one week Home health to assist with colostomy care/management teaching has been arranged Discharge instructions provided; they are available in the discharge documentation Postoperative diagnosis #1 acute perforated sigmoid diverticulitis with peritonitis #2 intra-abdominal and pelvic abscesses #3 chronic back pain Procedure: Placement of central venous line via left subclavian vein Exploratory ciliotomy evacuation of intra-abdominal and pelvic abscesses; Kassidy procedure (sigmoid colectomy with end descending colostomy and Kassidy pouch) Incidental Meckel's diverticulectomy Hospital course: 57-year-old male referred to surgical services after presenting to the [facility] emergency room department with approximately a 5 day history of progressive lower abdominal pain. Patient denied nausea and vomiting but was anorexic and noted decreased urine output. Findings on presentation included bibasilar pulmonary atelectasis, calcified splenic granulomas, scattered colonic diverticulosis with a complex gas fluid collection deep central pelvis measuring 5.9 x 4.3 cm as well as an abscess in the mid abdomen suggestive of possible jejunal perforation. The patient was examined and determined to require urgent surgical intervention. He Kasisdy procedure was scheduled and completed, 07/29/18. At the time of surgery, a central venous line was placed for venous access as well as for anticipated total parenteral nutrition I would be necessary until the patient's bowels recovered sufficiently to allow resumption of enteral nutrition. The patient's postoperative course was fairly unremarkable. He had the expected incisional pain. But responded nicely to [employer] pain control. Operative cultures demonstrated a pansensitive Escherichia coli which responded to the antibiotics administered prior to, during and postoperatively. Once the the patient's peritonitis resolved, and bowel function was obvious, internal nutrition was initiated and TPN was tapered. Patient continued to improve until postoperative day 9 when he was discharged home in good physical condition. At the time of discharge he was afebrile, tolerating a regular diet. Demonstrated normal lab work with no fevers, nausea or vomiting. The patient continued to complain of incisional pain but it was judged to be minimal and easily controlled with oral analgesics. Outpatient follow-up will be arranged in one week Home health has been contacted to assist with continued ostomy care, management, and teaching post discharge. Objective Vital Signs - Last 8 Hours Temp Pulse Resp BP Pulse Ox 08/07/18 10:25 97.8 F 51 15 114/73 98 08/07/18 06:39 98.1 F 58 15 107/71 94 Intake and Output 08/06/18 08/07/18 08/07/18 23:59 07:59 15:59 Intake Total 360 / 360 200 / 200 360 / 360 Output Total 300 / 300 0 / 0 0 / 0 Balance 60 / 60 200 / 200 360 / 360 Intake: Oral 360 / 360 200 / 200 360 / 360 Output: Urine 300 / 300 0 / 0 0 / 0 Stool 0 / 0 0 / 0 Other: Meal Dinner Breakfast Percent of Meal Consumed 50% 100% # Voids 3 Weight 88.1 kg Blood Glucose* 155 Patient Weight 08/07/18 23:59 Weight 88.1 kg - Labs 08/07/18 04:20 08/06/18 04:00 Consult Discharge Plan - Plan Referrals: Kurt Maharaj MD [Non-Partnered Physician] - 08/13/18 3:50 pm
--- NOTE | 2018-08-07 13:12 | Discharge Summary ---
Outpatient Proc Discharge Plan - Plan Additional Instructions: Regular diet Activity as tolerated; lifting limited to less than 20 pounds Patient may shower, wash incision and colostomy with soap and water Tylenol, ibuprofen, Motrin, Advil, Aleve was recommended for pain Prescription: Percocet 5/325, #20, one every 6-8 hours as needed for pain not relieved by Tylenol or [id number] medications. Patient may resume home meds Outpatient follow-up in the office, 08/13/18. Prescriptions: OxyCODONE/APAP 5/325 [Percocet 5/325 MG] 1 each PO Q6-8H PRN 5 Days #20 tablet PRN Reason: Pain Home Medications: Gabapentin [Neurontin] 600 mg PO TID 07/29/18 [History] Tramadol HCl [Ultram] 50 mg PO QID PRN 07/29/18 [History] Acetaminophen [Tylenol] 650 mg PO Q6HR PRN tablet 08/07/18 [Rx] OxyCODONE/APAP 5/325 [Percocet 5/325 MG] 1 each PO Q6-8H PRN 5 Days #20 tablet 08/07/18 [Rx]
== END 2018-08-07 13:50 | disposition home or self-care (01) | DRG 329 ==
LOC: EMEROOARM 05:55 → 3BNU 09:15 → 3ANU 15:17
PROVIDERS: ADMIT Surgery; ATTEND Surgery